=== PATIENT | male | born 1960 | race African-American/Black ===

== ENCOUNTER 2016-11-29 15:52 | Inpatient (IN) | payer MEDICARE, OTHER, MEDICAID ==
--- NOTE | 2016-11-29 16:27 | ED Physician Chart ---
Chief Complaint/HPI - Patient Information Date Seen:: 11/29/16 Time Seen:: 16:05 Chief Complaint:: chronic R ing. hernia now painful History of Present Illness:: Pt. has R ing. hernia for 12 years. Had pain today with defecation. No dysuria. No NV,D. Allergies:: Allergies Allergy/AdvReac Type Severity Reaction Status Date / Time No Known Allergies Allergy Verified 11/29/16 15:59 Vitals:: Vital Signs - 8 hr 11/29/16 15:52 Temp 98.0 F HR 73 RR 16 BP 116/75 O2 Sat % 98 Historian:: Patient Review of Systems - Review of Systems General/Constitutional: No fever, No chills Head: No headache Neck: No neck pain Cardio Vascular: Chest pain Pulmonary: No SOB GI: No nausea, No vomiting G/U: No dysuria Psychiatric: Prior psych history Allergic/Immuno: No urticaria Neurological: No syncope, No focal symptoms Past Medical History - Past Medical History Past Medical History: HTN, Other (hx leukocytosis (leukemia per Dr. Hutchison). CHF, cardiomyopathy.) Family History: None Social History: Non Smoker, No Alcohol Psychiatricy History: Schizophrenia Medication Reviewed:: risperdal and unknown antihypertensives Family Medical History - Family Member Father History Unknown: Yes Ethnicity: Non- Living Status: Unknown Hx Family Stroke: Yes Hx Family Tuberculosis: No Mother History Unknown: Yes Physical Exam - Physical Examination General/Constitutional: Awake, Well-developed, well-nourished, Alert, No distress, GCS 15, Non-toxic appearing Head: Atraumatic Eyes: Lids, conjuctiva normal, PERRL, EOMI Skin: Nl inspection ENMT: External ears, nose nl Neck: Nontender, Full ROM w/o pain Respiratory: Nl effort/Exclusion, Clear to Auscultation Cardio Vascular: RRR, No murmur, gallop, rubs GI: No tenderness/rebounding/guarding : No CVA tenderness Other comments:: Prob. bilat. hydrocoeles. R ing. hernia with minimal tenderness. Appears to be reducible. Extremities: No tenderness or effusion Neuro/Psych: Alert/oriented, No focal deficits Labs/Radiology/EKG Results - Lab Results Results: US shows nl. testes and bilat. hydrocoeles. CT abd. & pelvis, per rad.: "Large R ing. hernia containing bowel loops. Mild inflammatory changes in regional mesentery mesentery. No strangulation at this time but followup is needed. Large bilat hydrocoeles. Distended urinary bladder. Small broad based ventral hermia containing bowel loops. Milely prominent spleen." UA: unremarkable. November 03, 2016 WBC 37.7, H/H 13.1/40.5, BUN/creat = 18/1.1 These values being repeated. ED Septic Shock - . Is Septic Shock (SBP<90, OR Lactate>4 mmol\\L) present?: No - <6hrs of presentation: Vital Signs: Vital Signs - 8 hr 11/29/16 15:52 Temp 98.0 F HR 73 RR 16 BP 116/75 O2 Sat % 98 Reassessment (Disposition) - Diagnosis Diagnosis:: Dx: Large inguinal hernia with loops of bowel. Per rad. "follow up is needed". - Patient Disposition Discharge/Transfer:: Acute Care w/in this hosp Accepting Physician:: Dr. Hutchison Time Called:: 2024 Time Responded:: 20:25 Discussion with Medical Provider:: Discussed with Dr. Hutchison. He understands repeat CBC and CMP and CXR are pending, but he is aware of leukocytosis. He is giving admit orders. Condition at Disposition:: Stable
[2016-11-29 17:47] LABS: URINE BILIRUBIN NEGATIVE (NEGATIVE); URINE BLOOD NEGATIVE (NEGATIVE); URINE COLOR YELLOW; URINE GLUCOSE (UA) NEGATIVE (NEGATIVE); URINE KETONE NEGATIVE (NEGATIVE); URINE PROTEIN NEGATIVE (NEGATIVE); URINE UROBILINOGEN 0.2 E.U./dL (0.2 - 1.0)
[2016-11-29 17:48] LABS: URINE BACTERIA NONE SEEN /hpf (NONE SEEN); URINE EPITHELIAL CELLS NONE SEEN /lpf (FEW); URINE RBC NONE SEEN /hpf (0-5); URINE WBC NONE SEEN /hpf (0-5)
[2016-11-29] MEDS ORDERED: Maalox 30 mL Cup PO PRN (21:19)
[2016-11-29] MEDS ORDERED: Magnesium Hydroxide (MOM) 30 mL UDC PO PRN (21:19)
[2016-11-29] MEDS ORDERED: Albuterol Nebulizer 2.5mg/3mL IH PRN (21:21)
[2016-11-29] MEDS ORDERED: Ipratropium Neb 0.5 mg/2.5 mL UD IH PRN (21:21)
[2016-11-29] MEDS ORDERED: Hydrocodone/APAP 5mg/325mg Tab PO PRN (21:21)
[2016-11-29 21:22] LABS: MEAN PLATELET VOLUME 11.6 fl
[2016-11-29 21:32] LABS: HEMATOCRIT 39.9 % (39.0-49.0); MEAN CELL VOLUME 90.7 fl (80-99); MEAN CORPUSCULAR HEMOGLOBIN 29.6 pg (26.0-30.0); MEAN CORPUSCULAR HGB CONC 32.6 pg (28.0-36.0); RED CELL DISTRIBUTION WIDTH 13.4 % (11.5-20.0)
[2016-11-29 21:41] LABS: INR 1.1 (0.5-1.4); PROTHROMBIN TIME (TEST) 11.5 SECONDS (9.5-11.5)
[2016-11-29 21:42] LABS: PLATELET COUNT 109 Th/cmm (150-400)
[2016-11-29 21:46] LABS: ALB/GLOB RATIO 1.1 (1.0-1.8); ALKALINE PHOSPHATASE 29 U/L (34-104); AMYLASE SERUM 33 U/L (29-103); BILIRUBIN,TOTAL 0.3 mg/dL (0.3-1.0); BUN - UREA NITROGEN 18 mg/dL (7-25); CALCIUM SERUM 9.5 mg/dL (8.6-10.3); CHLORIDE 105 mEq/L (98-107); CREATININE - SERUM 1.2 mg/dL (0.7-1.3); GLUCOSE 83 mg/dL (70-105); LIPASE 27 U/L (11-82); POTASSIUM SERUM 3.9 mEq/L (3.5-5.1); SGOT 16 U/L (13-39); SGPT/ALT 8 U/L (7-52); SODIUM SERUM 136 mEq/L (136-145)
[2016-11-29 21:48] LABS: WHITE BLOOD COUNT 58.3 Th/cmm (4.8-10.8)
[2016-11-29 22:33] LABS: BAND NEUTROPHILE 0 % (0-10); BASOPHIL 0 % (0-3); EOSINOPHIL 0 % (0-5); NEUTROPHILS 6 % (40-80); TOTAL CELLS COUNTED 100
[2016-11-29 22:34] LABS: PLATELET ESTIMATE ADEQUATE (NORMAL); PLATELET MORPHOLOGY NORMAL (NORMAL)
[2016-11-29 22:59] LABS: ANION GAP 6.5 (7.0-16.0); CARBON DIOXIDE 28.4 mEq/L (21.0-31.0)
[2016-11-29] MEDS ORDERED: metroNIDAZOLE 500mg/NS 100mL 500 MG/100 ML BAG IV ONE (23:31)
[2016-11-29] MEDS: Levofloxacin 500mg/100mL 500 MG/100 ML BAG IV SCH (23:39)
[2016-11-30] MEDS ORDERED: Pneumococcal Vaccine 0.5 mL Vial IM ONE (00:54)
[2016-11-30 03:23] VITALS: BP 119/77
[2016-11-30] MEDS: metroNIDAZOLE 500mg/NS 100mL 500 MG/100 ML BAG IV SCH ×2 (04:56→21:55)
--- NOTE | 2016-11-30 07:57 | Admit Criteria Form ---
Admit Criteria Forms - Admit Criteria Diagnosis: UROLOGIC DISEASE [facility] Clinical Indications for Admission to Inpatient Care (Place ' X' for any and all applicable criteria): Hospital admission is needed for appropriate care of the patient because of 1 or more of the following: [ ]I. New-onset Reduced urine output, or hydronephrosis remaining after emergency or observation level care (as appropriate ) [ ]II. Renal disease needing inpatient care indicated by 1 or more of the following(2)(3)(4): [ ]a) Acute renal failure [ ]b) Significant uremic complications [ ]c) Acute kidney injury (that does not qualify as Acute renal failure ) requiring inpatient care indicated by ALL of the following(5)(6)(7)(8) (9): [ ]i) Worsening clinical status (eg, rising creatinine) despite outpatient and observation care treatment (eg, hydration) [ ]ii) Acute kidney injury indicated by 1 or more of the following: [ ]1) 2-fold or more rise in serum creatinine from baseline [ ]2) Reduction of more than 50% in estimated glomerular filtration rate from baseline [ ]3) Urine output less than 0.5 mL/kg/hr for 12 hours despite adequate volume status [ ]d) Systemic cause (eg, Goodpasture syndrome ) needing inpatient care [ ]e) Rapidly progressive renal disease needing inpatient care (eg, plasmapheresis, immunosuppression ) Anasarca needing inpatient care [ ]f) Hemoptysis [ ]g) Hemolysis, thrombosis, or infraction [ ]h) Anasarca needing inpatient care [ ]III. New-onset or uncontrolled nephrogenic diabetes insipidus [ ]IV. Urologic infection requiring inpatient care as indicated by 1 or more of the following(10)(11)(12): [ ]a) Hemodynamic instability [ ]b) Dehydration that is severe or persistent [ ]c) Failure of outpatient treatment [ ]d) Jumana's gangrene [ ]e) Urinary obstruction [ ]f) Immunocompromised state (eg, chronic steroid use ) [ ]g) Known renal or urologic abnormalities(eg, indwelling catheter, structural abnormalities ) [ ]h) Recent urologic manipulation or procedure Urinary obstruction [ ]i) Abscess requiring drainage Immunocompromised state [ ]V. Acute urinary retention requiring inpatient management as indicated by ANY ONE of the following(1)(13): [ ]a) Retention cannot be alleviated via emergency or observation level care (eg, urinary catheter placement) [ ]b) Hemodynamic instability [ ]c) Acute neurologic etiology (eg, cauda equina) [ ]d) Dehydration or other complications not manageable with emergency or observation level care [ ]e) Acute kidney injury (that does not qualify as Acute renal failure ) requiring inpatient care indicated by ALL of the following(5)(6)(7)(8) (9): [ ]i) Acute kidney injury indicated by ANY ONE of the following: [ ]1) 2-fold or more rise in serum creatinine from baseline [ ]2) Reduction of more than 50% in estimated glomerular filtration rate from baseline [ ]ii) Worsening clinical status (eg, rising creatinine) despite outpatient and observation care treatment (eg, hydration) [ ]. Gross hematuria requiring inpatient management as indicated by ANY ONE of the following(1)(2): [ ]a) Evidence of renal obstruction [ ]b) Reduced urine output [ ]c) Clot retention after urinary catheterization and irrigation [ ]d) Severe Anemia [ ]e) Systemic cause needing inpatient treatment (eg, Goodpasture syndrome) [ ]VII. Priapism not responsive to emergency or observation care treatment [ X]VII. Scrotal, testicular, or epididymal disorder requiring inpatient care indicated by 1 or more of the following(1)(14)(15)(16): [ ]a) Scrotal edema or infection not manageable with emergency or observation level care [ ]b) Orchitis not manageable with emergency or observation level care [ ]c) Epididymitis not manageable with emergency or observation level of care [ X]d) Other scrotal, testicular, or epididymal disorder (eg, infection, inflammation) not manageable with emergency or observation level care [ ]IX. Complications of transplanted kidney indicated by 1 or more of the following [ ]a) Acute graft rejection requiring inpatient management (eg, intravenous immunosuppression) [ ]b) Acute kidney injury indicated by ALL of the following i) Acute kidney injury indicated by 1 or more of the following 1) 2-fold or more rise in serum creatinine from baseline 2) Reduction of more than 50% in estimated glomerular filtration rate from baseline 3) Urine output less than 0.5 mL/kg/hr for 12 hours despite adequate volume status ii) Kidney injury too severe or not responsive to outpatient and observation care treatment (eg, hydration) [ ]c) Infection requiring inpatient management (eg, Hemodynamic instability, need for intravenous antimicrobial treatment) [ ]d) Other complication of transplanted kidney requiring patient management (eg, severe diarrhea leading to malabsorption) [ ]X. Trauma to renal, genital, or urologic system requiring inpatient medical care [ ]XI. Urologic Disease condition, symptom, or finding for which emergency and observation care have failed or are not considered appropriate. The original [facility] [employer] content created by [facility] [employer] has been revised. The portions of the content which have been revised are identified through the use of italic text or in bold, and [facility] has neither reviewed nor approved the modified material. All other unmodified content is copyright [facility] [employer]. Please see references footnoted in the original [facility] [employer] edition 2016 Admit Criteria Met?: Pending
--- NOTE | 2016-11-30 08:52 | General Progress Note ---
Subjective - Review of Systems Service Date: 11/30/16 Events since last encounter: CT scan and ultrasound shows large right inguinal hernas with bilateral hydrocoeles has ventral hernia with bowel has leukemia mental status? will verify if patient can sign his own consent Objective - Results Result Diagrams: 11/29/16 20:50 11/29/16 20:50 Recent Labs: Laboratory Last Values WBC 58.3 Th/cmm (4.8-10.8) H* D 11/29/16 20:50 RBC 4.40 Mil/cmm (4.30-5.70) 11/29/16 20:50 Hgb 13.0 gm/dL (13.2-17.3) L 11/29/16 20:50 Hct 39.9 % (39.0-49.0) 11/29/16 20:50 MCV 90.7 fl (80-99) 11/29/16 20:50 MCH 29.6 pg (26.0-30.0) 11/29/16 20:50 MCHC Differential 32.6 pg (28.0-36.0) 11/29/16 20:50 RDW 13.4 % (11.5-20.0) 11/29/16 20:50 Plt Count 109 Th/cmm (150-400) L D 11/29/16 20:50 MPV 11.6 fl 11/29/16 20:50 Band Neutrophils % 0 % (0-10) 11/29/16 20:50 Neutrophils (Manual) 6 % (40-80) L 11/29/16 20:50 Lymphocytes 88 % (20-50) H 11/29/16 20:50 Monocytes 6 % (2-10) 11/29/16 20:50 Eosinophils 0 % (0-5) 11/29/16 20:50 Basophils 0 % (0-3) 11/29/16 20:50 Platelet Estimate ADEQUATE (NORMAL) 11/29/16 20:50 Platelet Morphology NORMAL (NORMAL) 11/29/16 20:50 RBC Morph Micro Appear NORMAL (NORMAL) 11/29/16 20:50 PT 11.5 SECONDS (9.5-11.5) 11/29/16 20:50 INR 1.10 (0.5-1.4) 11/29/16 20:50 PTT (Actin FS) 25.9 SECONDS (26.0-38.0) L 11/29/16 20:50 Sodium 136 mEq/L (136-145) 11/29/16 20:50 Potassium 3.9 mEq/L (3.5-5.1) 11/29/16 20:50 Chloride 105 mEq/L (98-107) 11/29/16 20:50 Carbon Dioxide 28.4 mEq/L (21.0-31.0) 11/29/16 20:50 Anion Gap 6.5 (7.0-16.0) L 11/29/16 20:50 BUN 18 mg/dL (7-25) 11/29/16 20:50 Creatinine 1.2 mg/dL (0.7-1.3) 11/29/16 20:50 Est GFR ( Amer) > 60.0 ml/min (>90) 11/29/16 20:50 Est GFR (Non-Af Amer) > 60.0 ml/min 11/29/16 20:50 BUN/Creatinine Ratio 15.0 11/29/16 20:50 Glucose 83 mg/dL (70-105) 11/29/16 20:50 Calcium 9.5 mg/dL (8.6-10.3) 11/29/16 20:50 Total Bilirubin 0.3 mg/dL (0.3-1.0) 11/29/16 20:50 AST 16 U/L (13-39) 11/29/16 20:50 ALT 8 U/L (7-52) 11/29/16 20:50 Alkaline Phosphatase 29 U/L (34-104) L 11/29/16 20:50 B-Natriuretic Peptide 227.0 pg/mL (5.0-100.0) H 11/29/16 20:50 Total Protein 7.4 gm/dL (6.0-8.3) 11/29/16 20:50 Albumin 3.9 gm/dL (4.2-5.5) L 11/29/16 20:50 Globulin 3.5 gm/dL 11/29/16 20:50 Albumin/Globulin Ratio 1.1 (1.0-1.8) 11/29/16 20:50 Amylase 33 U/L (29-103) 11/29/16 20:50 Lipase 27 U/L (11-82) 11/29/16 20:50 Urine Source CLEAN C 11/29/16 16:05 Urine Color YELLOW 11/29/16 16:05 Urine Clarity CLEAR (CLEAR) 11/29/16 16:05 Urine pH 6.0 11/29/16 16:05 Ur Specific [place] 1.005 (1.005-1.030) 11/29/16 16:05 Urine Protein NEGATIVE mg/dL (NEGATIVE) 11/29/16 16:05 Urine Glucose (UA) NEGATIVE mg/dL (NEGATIVE) 11/29/16 16:05 Urine Ketones NEGATIVE mg/dL (NEGATIVE) 11/29/16 16:05 Urine Blood NEGATIVE (NEGATIVE) 11/29/16 16:05 Urine Nitrate NEGATIVE (NEGATIVE) 11/29/16 16:05 Urine Bilirubin NEGATIVE (NEGATIVE) 11/29/16 16:05 Urine Urobilinogen 0.2 E.U./dL (0.2 - 1.0) 11/29/16 16:05 Ur Leukocyte Esterase NEGATIVE (NEGATIVE) 11/29/16 16:05 Urine RBC NONE SEEN /hpf (0-5) 11/29/16 16:05 Urine WBC NONE SEEN /hpf (0-5) 11/29/16 16:05 Ur Epithelial Cells NONE SEEN /lpf (FEW) 11/29/16 16:05 Urine Bacteria NONE SEEN /hpf (NONE SEEN) 11/29/16 16:05 - Physical Exam Vitals and I&O: Vital Signs Temp 97.7 F 11/30/16 04:00 Pulse 68 11/30/16 04:00 Resp 20 11/30/16 04:00 BP 104/73 11/30/16 04:00 Pulse Ox 98 11/30/16 04:00 Active Medications: Current Medications Acetaminophen (Tylenol) 650 mg PO Q4HR PRN PRN Reason: Pain or Fever >101 Stop: 01/28/17 21:20 Acetaminophen/Hydrocodone Bitart ([place] 5mg/325mg) 1 tab PO Q4H PRN PRN Reason: Pain (Severe) Stop: 01/28/17 21:20 Al Hydrox/Mg Hydrox/Simethicone (Maalox) 30 ml PO Q4H PRN PRN Reason: GI DISTRESS Stop: 01/28/17 21:18 Albuterol Sulfate (Albuterol 2.5mg/3ml Neb Ud) 2.5 mg IH Q2HR PRN PRN Reason: Shortness of Breath or Wheeze Stop: 01/28/17 21:20 Artificial Tears (Artificial Tears Ophth Soln) 1 drop EACH EYE QID [facility] Stop: 01/29/17 08:59 Benztropine Mesylate (Cogentin) 1 mg PO BID [facility] Stop: 01/29/17 08:59 Carvedilol (Coreg) 3.125 mg PO BID [facility] Stop: 01/29/17 08:59 Clonidine HCl (Catapres) 0.1 mg PO Q8H PRN PRN Reason: SBP GREATER THAN 160 Stop: 01/28/17 21:18 Divalproex Sodium (Depakote Dr) 500 mg PO DAILY [facility] PRN Reason: Protocol Stop: 01/29/17 08:59 Fish Oil ([place] 3) 1,000 mg PO DAILY [facility] Stop: 01/29/17 08:59 Heparin Sodium (Porcine) (Heparin) 5,000 units SUBQ Q12HR [facility] Stop: 01/29/17 08:59 Levofloxacin (Levaquin Pb) 500 mg in 100 mls @ 100 mls/hr IV Q24HR [facility] Stop: 01/28/17 21:29 Last Admin: 11/29/16 23:39 Dose: 100 mls/hr Metronidazole (Flagyl) 500 mg in 100 mls @ 100 mls/hr IV Q8HR [facility] Stop: 01/29/17 04:59 Last Admin: 11/30/16 04:56 Dose: 100 mls/hr Ipratropium [place] (Atrovent Neb 0.5mg/2.5ml) 0.5 mg IH Q2HR PRN PRN Reason: Shortness of Breath or Wheeze Stop: 01/28/17 21:20 Magnesium Hydroxide (Milk Of Magnesia) 30 ml PO HS PRN PRN Reason: Constipation Stop: 01/28/17 21:18 Nitroglycerin (Nitrostat) 0.4 mg SL Q5MIN PRN PRN Reason: Chest Pain Stop: 01/28/17 21:18 Ondansetron HCl (Zofran) 4 mg IV Q8H PRN PRN Reason: Nausea / Vomiting Stop: 01/28/17 21:20 Risperidone (Risperdal) 2 mg PO Q12H ROBERTO PRN Reason: Protocol Stop: 01/28/17 21:29 Last Admin: 11/29/16 23:27 Dose: 2 mg Zolpidem Tartrate (Ambien) 10 mg PO HS PRN PRN Reason: Insomnia Stop: 01/28/17 21:20 - Procedures Procedures: Procedures Procedure Code Date OTHER GROUP THERAPY 94.44 12/22/14 Assessment/Plan - Problem List Patient Problems: All Active Problems Dyspnea (Active) R06.00 Acute on chronic systolic congestive heart failure (Acute) I50.23 Anemia (Acute) D64.9 CHF (congestive heart failure) (Acute) I50.9 Cardiomegaly (Acute) I51.7 Cardiomyopathy (Acute) 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
--- NOTE | 2016-11-30 09:23 | Diagnostic Imaging Report ---
Testicular/scrotal ultrasound HISTORY: Pain The right testis is somewhat small (2.8 x 3.6 x 2.9 cm. No focal parenchymal lesions. Slightly decreased vascular flow. The right epididymis appears normal. There is a relatively large hydrocele. The left testis measures 3.6 x 2.8 x 2.7 cm. No focal parenchymal lesions. Normal testicular vascular flow. A large hydrocele is seen on the left side. IMPRESSION: 1. Relatively large bilateral hydroceles 2. Slightly diminished size of the right testis with a mild decrease in overall vascular flow compared to the left side. No focal intratesticular parenchymal lesions.
[2016-11-30] MEDS: Polyvinyl Alcohol Ophth Soln 15 mL Bottle EACH EYE SCH ×3 (09:43→23:34)
[2016-11-30] MEDS: Fish Oil 1,000 MG SGL PO SCH (09:44)
[2016-11-30] MEDS: Benztropine 1 MG TAB PO SCH ×2 (09:45→17:11)
--- NOTE | 2016-11-30 09:46 | Diagnostic Imaging Report ---
CT scan abdomen and pelvis without intravenous contrast HISTORY: Pain, hernia Total DLP equals 823 CTDI equals 22.0 Axial sections were obtained from the xiphoid process down to the pubic symphysis. Limited sections of the lower chest demonstrate a small hiatal hernia. The liver exhibits a bulbous contour. The spleen appears enlarged. No focal abnormality seen in the region of the pancreas. No significant focal renal lesions. There is an approximate 2.1 cm defect noted within the anterior abdominal wall at the level the umbilicus associated with virtual hernia that contains nondilated bowel. The exam of the pelvis demonstrates a relatively large right inguinal hernia associated with nondilated bowel. Large bilateral hydroceles are seen. No other abnormal masses or fluid collections seen within the pelvis. IMPRESSION: 1. Large right inguinal hernia associated with nondilated bowel 2. Small umbilical hernia with nondilated bowel 3. Splenomegaly 4. Large bilateral hydroceles
--- NOTE | 2016-11-30 09:53 | Diagnostic Imaging Report ---
Portable chest x-ray HISTORY: Shortness of breath The heart is enlarged. No focal pulmonary processes. No hilar or mediastinal abnormalities. IMPRESSION: 1. No acute focal pulmonary processes 2. Cardiomegaly
[2016-11-30] MEDS ORDERED: Bupivacaine 0.5% W/Ep 10 mL Vial INJ ONE (13:00)
[2016-11-30] MEDS ORDERED: Midazolam 1mg/ml 2 ml vial IV ONE (13:06)
[2016-11-30] MEDS ORDERED: Meperidine 50 mg/mL 1mL Syr ONE ×2 (13:13→14:50)
[2016-11-30] MEDS ORDERED: Meperidine 25 mg/mL 1mL Syr IVP PRN (13:43)
[2016-11-30] MEDS ORDERED: Lactated Ringer 1,000 ML IV SCH (13:45)
[2016-11-30] MEDS ORDERED: Neostigmine 10mg/10mL Vial ONE (14:11)
--- NOTE | 2016-11-30 15:40 | History & Physical ---
CHIEF COMPLAINT: Pelvic pain. HISTORY OF PRESENT ILLNESS: This is a 55-year-old male with history of hypertension, schizoaffective disorder, chronic lower extremity edema, history of CHF, was admitted from nursing facility secondary to worsening pain in pelvic area. The patient with hydrocele as well as hernia, which is worsening. The patient was seen in the ER and admitted for further management. PAST MEDICAL HISTORY: As mentioned in history present illness. PAST SURGICAL HISTORY: Denies surgeries in the past. ALLERGIES: No known drug allergies. MEDICATIONS: Please see medication list. FAMILY HISTORY: Noncontributory. SOCIAL HISTORY: Previous smoker, nondrinker and no drugs, unemployed. The patient had been in a intermediate. REVIEW OF SYSTEMS: GENERAL: Complains of not feeling well. HEENT: No blurred vision. NECK: No neck pain. LUNGS: ____COPD or asthma. HEART: The patient with hypertension and CHF. ABDOMEN: No nausea, vomiting or pain, as mentioned above. NEUROLOGIC: No headaches, seizure. PSYCHIATRIC: As stated above. PHYSICAL EXAMINATION: VITAL SIGNS: Blood pressure 120/64, respirations 18, pulse 80, temperature 98.6. GENERAL: Middle aged male, appears chronically ill. NECK: Supple. No mass. LUNGS: Equal breath sounds, few rhonchi. HEART: Regular rate and rhythm without appreciable murmurs. ABDOMEN: Soft, nontender. Positive bowel sounds. EXTREMITIES: Positive excoriations. Positive trace edema. GENITOURINARY: Positive testicular swelling and inguinal hernia. ASSESSMENT AND PLAN: Pelvic pain secondary to worsening inguinal hernia, no incarceration per Radiology, hydrocele, hypertension, schizoaffective disorder, electrolyte abnormalities. We will continue the patient on IV hydration. The patient is n.p.o. Surgery to see the patient. We will also refer the patient to Psychiatry. Continue with current care. JOB# [id number]
--- NOTE | 2016-11-30 16:33 | Consultation ---
REFERRING PHYSICIAN: Dr. Hutchison. REASON FOR CONSULTATION: Abdominal pain. Thank you for referring this patient to me. HISTORY OF PRESENT ILLNESS: A 55-year-old male with known history of right inguinal hernia over the last 12 years. Today, following a bowel movement, he complained of severe pain in the right groin. PAST MEDICAL HISTORY: Totally is not clear, but he does have leukemia and probably some psych disorder. Dr. Levine has been seen the patient. He has a conservator out of state who is a sister. LABORATORY STUDIES: On this admission, the WBC was elevated at 58,300 consistent with history of leukemia. Chemistry was within normal limits. The patient underwent a CT scan of the abdomen and this showed large right inguinal hernia with small umbilical hernia with nondilated bowel, splenomegaly and question of hydrocele bilaterally. The ultrasound confirmed same findings. 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 PHYSICAL EXAMINATION: Does include a right inguinal hernia. The scrotum bilaterally appears to be slightly enlarged. There is a questionable hernia on the left side. There is an umbilical hernia, which is nontender. IMPRESSION: 1. Umbilical hernia with question of incarceration. 2. Right inguinal hernia with question of incarceration. 3. Question of left inguinal hernia. 4. Bilateral hydrocele (?). PLAN: Informed consent was discussed with the patient who agrees that the procedure and Dr. Levine on the consult and finally discuss with conservator from other state. Consent was given and repair of the various hernias will be done. JOB# [id number] [facility]
[2016-11-30] MEDS: Hydrocodone/APAP 10 mg/325 mg Tab PO PRN (17:13)
--- NOTE | 2016-11-30 18:29 | Operative Report ---
PREOPERATIVE DIAGNOSES: 1. Incarcerated umbilical hernia (?). 2. Right inguinal hernia. 3. Question of left inguinal hernia. 4. Bilateral hydrocele. 5. Leukemia. POSTOPERATIVE DIAGNOSES: 1. Incarcerated umbilical hernia (?). 2. Right inguinal hernia. 3. Question of left inguinal hernia. 4. Bilateral hydrocele. 5. Leukemia. OPERATION DONE: 1. Repair of umbilical hernia that is primary repair. 2. Repair of right inguinal hernia with placement of median sized PerFix plug. 3. Repair of left inguinal hernia. OPERATIVE FINDINGS: Umbilical hernia was moderate in size. There was some omentum present, but no bowel in the sac. Primary repair was done. The right inguinal hernia was a direct inguinal hernia and question was indirect inguinal hernia and repair was done with the use of PerFix plug. The hernia on the left side was of the indirect type and this was repaired separately. The hydrocele is likely not a hydrocele, but fluid emanating from the abdominal cavity to the hernias going into the sac. DESCRIPTION OF PROCEDURE: The patient was given general anesthesia. The abdomen and scrotal region was prepped with Betadine and draped in appropriate manner. A midline incision was made above and below the umbilicus. Bleeders were coagulated. The fascia was opened into the abdominal cavity. The sac was identified. No incarcerated structure was seen. The fascia was then identified on the left side of the umbilical hernia and repair of the fascia together utilizing interrupted [id number] sutures, #1 Nurolon was done. The subcutaneous tissues were closed with 4-0 Vicryl and the skin was closed with subcuticular suture of 4-0 Vicryl. Separate incision was made in the right groin and the sac was identified. This was indirect inguinal hernia. This was repaired with the use of PerFix plug, medium in size, anchoring the sutures to the ligaments in 4 quadrants. The left inguinal hernia was repaired in a different way as this was a direct type. Sutures were placed and the transversalis fascia and the Poupart's ligament with interrupted sutures of 2-0 Nurolon. The subcutaneous tissues were closed with 3-0 Vicryl and the skin was closed with subcuticular suture of 4-0 Vicryl. The patient tolerated the procedure well. JOB# [id number]
[2016-11-30 21:28] LABS: HEMATOCRIT 42.8 % (39.0-49.0); HEMOGLOBIN 14.3 gm/dL (13.2-17.3); MEAN CELL VOLUME 89.5 fl (80-99); MEAN CORPUSCULAR HEMOGLOBIN 29.8 pg (26.0-30.0); MEAN CORPUSCULAR HGB CONC 33.3 pg (28.0-36.0); MEAN PLATELET VOLUME 11.8 fl; PLATELET COUNT 105 Th/cmm (150-400); RED BLOOD COUNT 4.78 Mil/cmm (4.30-5.70); RED CELL DISTRIBUTION WIDTH 13.4 % (11.5-20.0)
[2016-11-30 21:37] LABS: WHITE BLOOD COUNT 34.9 Th/cmm (4.8-10.8)
[2016-11-30 21:41] LABS: ALKALINE PHOSPHATASE 31 U/L (34-104); ANION GAP 8.8 (7.0-16.0); BILIRUBIN,TOTAL 0.6 mg/dL (0.3-1.0); BUN - UREA NITROGEN 17 mg/dL (7-25); BUN/CREATININE RATIO 15.5; CALCIUM SERUM 9.3 mg/dL (8.6-10.3); CARBON DIOXIDE 24.1 mEq/L (21.0-31.0); CHLORIDE 106 mEq/L (98-107); CREATININE - SERUM 1.1 mg/dL (0.7-1.3); GLUCOSE 105 mg/dL (70-105); POTASSIUM SERUM 3.9 mEq/L (3.5-5.1); SGOT 16 U/L (13-39); SGPT/ALT 7 U/L (7-52); SODIUM SERUM 135 mEq/L (136-145)
[2016-11-30 22:09] LABS: BAND NEUTROPHILE 0 % (0-10); NEUTROPHILS 18 % (40-80); TOTAL CELLS COUNTED 100
[2016-11-30 22:10] LABS: BASOPHIL 0 % (0-3); EOSINOPHIL 0 % (0-5); PLATELET ESTIMATE ADEQUATE (NORMAL); PLATELET MORPHOLOGY NORMAL (NORMAL)
[2016-11-30] MEDS: HYDROmorphone 2 mg/mL 1mL Vial IVP PRN (22:10)
[2016-11-30] MEDS: Levofloxacin 500mg/100mL 500 MG/100 ML BAG IV SCH (22:58)
[2016-12-01] MEDS: HYDROmorphone 2 mg/mL 1mL Vial IVP PRN ×2 (03:58→12:53)
[2016-12-01] MEDS: metroNIDAZOLE 500mg/NS 100mL 500 MG/100 ML BAG IV SCH ×4 (04:05→20:15)
--- NOTE | 2016-12-01 04:21 | Consultation ---
The patient was seen, chart reviewed, discussed with staff. HISTORY OF PRESENT ILLNESS: The patient is a 55-year-old male with chronic history of mental illness, well known to myself from treatment at his facility and also at prior psychiatric hospitalization, currently on medical floor for surgery for hernia repair and the patient is in agreement. The patient said he might have the surgery and known that it will help him. The patient has been cooperative with staff, has not been agitated or depressed or anxious, he was actually pleasant. PAST PSYCHIATRIC HISTORY: Multiple hospitalizations, chronic history of mental illness. PAST MEDICAL HISTORY: As per Dr. Hutchison. PSYCHOSOCIAL HISTORY: The patient resides at [facility], requires complete care. Sister is conservator____, but she is out of state. MENTAL STATUS EXAMINATION: The patient is cooperative, superficial, pleasant, occasionally responding to internal stimuli. He is oriented to person, who was in the hospital, knew his name, his date of . No suicidal thoughts, no homicidal thoughts. ASSESSMENT: Schizophrenia versus schizoaffective disorder, chronic. PLAN: At this time, would continue current psychiatric medications. We will follow while in the hospital to provide supportive measures. The patient is accepting treatment. Thank you for the consultation. JOB# [id number]
[2016-12-01 07:27] LABS: HEMOGLOBIN 14.5 gm/dL (13.2-17.3); MEAN CELL VOLUME 90.4 fl (80-99); MEAN CORPUSCULAR HEMOGLOBIN 29.8 pg (26.0-30.0); PLATELET COUNT 113 Th/cmm (150-400); RED BLOOD COUNT 4.87 Mil/cmm (4.30-5.70); RED CELL DISTRIBUTION WIDTH 13.6 % (11.5-20.0)
[2016-12-01 07:53] LABS: INR 1.09 (0.5-1.4); PROTHROMBIN TIME (TEST) 11.4 SECONDS (9.5-11.5)
[2016-12-01 07:55] LABS: ALKALINE PHOSPHATASE 33 U/L (34-104); ANION GAP 6.8 (7.0-16.0); BILIRUBIN,TOTAL 0.8 mg/dL (0.3-1.0); BUN - UREA NITROGEN 16 mg/dL (7-25); BUN/CREATININE RATIO 13.3; CALCIUM SERUM 9.5 mg/dL (8.6-10.3); CARBON DIOXIDE 29.4 mEq/L (21.0-31.0); CHLORIDE 104 mEq/L (98-107); CREATININE - SERUM 1.2 mg/dL (0.7-1.3); GLUCOSE 93 mg/dL (70-105); POTASSIUM SERUM 4.2 mEq/L (3.5-5.1); SGOT 18 U/L (13-39); SGPT/ALT 6 U/L (7-52); SODIUM SERUM 136 mEq/L (136-145)
[2016-12-01 08:07] LABS: WHITE BLOOD COUNT 52.1 Th/cmm (4.8-10.8)
--- NOTE | 2016-12-01 08:42 | General Progress Note ---
Subjective - Review of Systems Service Date: 12/01/16 Events since last encounter: abdominal dressing changed incisions are clean diet as tolerated activity as tolerated, no lifting over 10 lbs for 6 weeks Objective - Results Result Diagrams: 12/01/16 07:20 12/01/16 07:20 Recent Labs: Laboratory Last Values WBC 52.1 Th/cmm (4.8-10.8) H* D 12/01/16 07:20 RBC 4.87 Mil/cmm (4.30-5.70) 12/01/16 07:20 Hgb 14.5 gm/dL (13.2-17.3) 12/01/16 07:20 Hct 44.0 % (39.0-49.0) 12/01/16 07:20 MCV 90.4 fl (80-99) 12/01/16 07:20 MCH 29.8 pg (26.0-30.0) 12/01/16 07:20 MCHC Differential 33.0 pg (28.0-36.0) 12/01/16 07:20 RDW 13.6 % (11.5-20.0) 12/01/16 07:20 Plt Count 113 Th/cmm (150-400) L 12/01/16 07:20 MPV 11.0 fl 12/01/16 07:20 Band Neutrophils % 0 % (0-10) 11/30/16 21:10 Neutrophils (Manual) 18 % (40-80) L 11/30/16 21:10 Lymphocytes 79 % (20-50) H 11/30/16 21:10 Monocytes 3 % (2-10) 11/30/16 21:10 Eosinophils 0 % (0-5) 11/30/16 21:10 Basophils 0 % (0-3) 11/30/16 21:10 Platelet Estimate ADEQUATE (NORMAL) 11/30/16 21:10 Platelet Morphology NORMAL (NORMAL) 11/30/16 21:10 RBC Morph Micro Appear NORMAL (NORMAL) 11/30/16 21:10 PT 11.4 SECONDS (9.5-11.5) 12/01/16 07:15 INR 1.09 (0.5-1.4) 12/01/16 07:15 PTT (Actin FS) 25.9 SECONDS (26.0-38.0) L 12/01/16 07:15 Sodium 136 mEq/L (136-145) 12/01/16 07:20 Potassium 4.2 mEq/L (3.5-5.1) 12/01/16 07:20 Chloride 104 mEq/L (98-107) 12/01/16 07:20 Carbon Dioxide 29.4 mEq/L (21.0-31.0) 12/01/16 07:20 Anion Gap 6.8 (7.0-16.0) L 12/01/16 07:20 BUN 16 mg/dL (7-25) 12/01/16 07:20 Creatinine 1.2 mg/dL (0.7-1.3) 12/01/16 07:20 Est GFR ( Amer) > 60.0 ml/min (>90) 12/01/16 07:20 Est GFR (Non-Af Amer) > 60.0 ml/min 12/01/16 07:20 BUN/Creatinine Ratio 13.3 12/01/16 07:20 Glucose 93 mg/dL (70-105) 12/01/16 07:20 Whole Bld Lactic Acid 1.83 mmol/L (0.60-1.99) 11/30/16 21:10 Calcium 9.5 mg/dL (8.6-10.3) 12/01/16 07:20 Total Bilirubin 0.8 mg/dL (0.3-1.0) 12/01/16 07:20 AST 18 U/L (13-39) 12/01/16 07:20 ALT 6 U/L (7-52) L 12/01/16 07:20 Alkaline Phosphatase 33 U/L (34-104) L 12/01/16 07:20 B-Natriuretic Peptide 227.0 pg/mL (5.0-100.0) H 11/29/16 20:50 Total Protein 7.9 gm/dL (6.0-8.3) 12/01/16 07:20 Albumin 4.0 gm/dL (4.2-5.5) L 12/01/16 07:20 Globulin 3.9 gm/dL 12/01/16 07:20 Albumin/Globulin Ratio 1.0 (1.0-1.8) 12/01/16 07:20 Amylase 33 U/L (29-103) 11/29/16 20:50 Lipase 27 U/L (11-82) 11/29/16 20:50 Urine Source CLEAN C 11/29/16 16:05 Urine Color YELLOW 11/29/16 16:05 Urine Clarity CLEAR (CLEAR) 11/29/16 16:05 Urine pH 6.0 11/29/16 16:05 Ur Specific [place] 1.005 (1.005-1.030) 11/29/16 16:05 Urine Protein NEGATIVE mg/dL (NEGATIVE) 11/29/16 16:05 Urine Glucose (UA) NEGATIVE mg/dL (NEGATIVE) 11/29/16 16:05 Urine Ketones NEGATIVE mg/dL (NEGATIVE) 11/29/16 16:05 Urine Blood NEGATIVE (NEGATIVE) 11/29/16 16:05 Urine Nitrate NEGATIVE (NEGATIVE) 11/29/16 16:05 Urine Bilirubin NEGATIVE (NEGATIVE) 11/29/16 16:05 Urine Urobilinogen 0.2 E.U./dL (0.2 - 1.0) 11/29/16 16:05 Ur Leukocyte Esterase NEGATIVE (NEGATIVE) 11/29/16 16:05 Urine RBC NONE SEEN /hpf (0-5) 11/29/16 16:05 Urine WBC NONE SEEN /hpf (0-5) 11/29/16 16:05 Ur Epithelial Cells NONE SEEN /lpf (FEW) 11/29/16 16:05 Urine Bacteria NONE SEEN /hpf (NONE SEEN) 11/29/16 16:05 - Physical Exam Vitals and I&O: Vital Signs Temp 98.2 F 12/01/16 04:00 Pulse 83 12/01/16 04:00 Resp 19 12/01/16 04:00 BP 132/85 12/01/16 04:00 Pulse Ox 96 12/01/16 04:00 Intake & Output 11/30/16 12/01/16 12/01/16 18:59 06:59 18:59 Intake Total 405.000 Balance 405.000 Intake: Intake, IV Amount 105.000 metroNIDAZOLE 500mg/NS 105.000 100mL 500 mg In 100 ml @ 100 mls/hr IV Q8HR [facility] Rx #:[id number] Oral 300 Other: # Voids 4 Stool Characteristics Soft Soft Active Medications: Current Medications Acetaminophen (Tylenol) 650 mg PO Q4HR PRN PRN Reason: Pain or Fever >101 Stop: 01/28/17 21:20 Acetaminophen/Hydrocodone Bitart ([place] 5mg/325mg) 1 tab PO Q4H PRN PRN Reason: Pain (Severe) Stop: 01/28/17 21:20 Acetaminophen/Hydrocodone Bitart ([place] 10 Mg/325 Mg) 1 tab PO Q4H PRN PRN Reason: Abdominal Pain Stop: 01/29/17 14:18 Last Admin: 11/30/16 17:13 Dose: 1 tab Al Hydrox/Mg Hydrox/Simethicone (Maalox) 30 ml PO Q4H PRN PRN Reason: GI DISTRESS Stop: 01/28/17 21:18 Albuterol Sulfate (Albuterol 2.5mg/3ml Neb Ud) 2.5 mg IH Q2HR PRN PRN Reason: Shortness of Breath or Wheeze Stop: 01/28/17 21:20 Artificial Tears (Artificial Tears Ophth Soln) 1 drop EACH EYE QID [facility] Stop: 01/29/17 08:59 Last Admin: 11/30/16 23:34 Dose: 1 drop Benztropine Mesylate (Cogentin) 1 mg PO BID [facility] Stop: 01/29/17 08:59 Last Admin: 11/30/16 17:11 Dose: 1 mg Carvedilol (Coreg) 3.125 mg PO BID [facility] Stop: 01/29/17 08:59 Last Admin: 11/30/16 17:12 Dose: 3.125 mg Clonidine HCl (Catapres) 0.1 mg PO Q8H PRN PRN Reason: SBP GREATER THAN 160 Stop: 01/28/17 21:18 Divalproex Sodium (Depakote Dr) 500 mg PO DAILY [facility] PRN Reason: Protocol Stop: 01/29/17 08:59 Last Admin: 11/30/16 09:44 Dose: 500 mg Fish Oil ([place] 3) 1,000 mg PO DAILY [facility] Stop: 01/29/17 08:59 Last Admin: 11/30/16 09:44 Dose: 1,000 mg Heparin Sodium (Porcine) (Heparin) 5,000 units SUBQ Q12HR [facility] Stop: 01/29/17 08:59 Last Admin: 11/30/16 23:03 Dose: 5,000 units Hydromorphone HCl (Dilaudid) 2 mg IVP Q4HR PRN PRN Reason: Abdominal Pain Stop: 01/29/17 14:18 Last Admin: 12/01/16 03:58 Dose: 2 mg Levofloxacin (Levaquin Pb) 500 mg in 100 mls @ 100 mls/hr IV Q24HR [facility] Stop: 01/28/17 21:29 Last Admin: 11/30/16 22:58 Dose: 100 mls/hr Metronidazole (Flagyl) 500 mg in 100 mls @ 100 mls/hr IV Q8HR [facility] Stop: 01/29/17 04:59 Last Admin: 12/01/16 04:08 Dose: 100 mls/hr Lactated Ringer's (Lactated Ringer) 1,000 mls @ 0 mls/hr IV .Q0M [facility] PRN Reason: TKO Stop: 12/01/16 13:44 Ipratropium [place] (Atrovent Neb 0.5mg/2.5ml) 0.5 mg IH Q2HR PRN PRN Reason: Shortness of Breath or Wheeze Stop: 01/28/17 21:20 Magnesium Hydroxide (Milk Of Magnesia) 30 ml PO HS PRN PRN Reason: Constipation Stop: 01/28/17 21:18 Meperidine HCl (Demerol) 12.5 mg IVP UD PRN PRN Reason: POST-OP PAIN Stop: 12/01/16 13:42 Nitroglycerin (Nitrostat) 0.4 mg SL Q5MIN PRN PRN Reason: Chest Pain Stop: 01/28/17 21:18 Ondansetron HCl (Zofran) 4 mg IV Q8H PRN PRN Reason: Nausea / Vomiting Stop: 01/28/17 21:20 Risperidone (Risperdal) 2 mg PO Q12H [facility] PRN Reason: Protocol Stop: 01/28/17 21:29 Last Admin: 11/30/16 23:03 Dose: 2 mg Zolpidem Tartrate (Ambien) 10 mg PO HS PRN PRN Reason: Insomnia Stop: 01/28/17 21:20 - Procedures Procedures: Procedures Procedure Code Date OTHER GROUP THERAPY 94.44 12/22/14 Assessment/Plan - Problem List Patient Problems: All Active Problems Dyspnea (Active) R06.00 Acute on chronic systolic congestive heart failure (Acute) I50.23 Anemia (Acute) D64.9 CHF (congestive heart failure) (Acute) I50.9 Cardiomegaly (Acute) I51.7 Cardiomyopathy (Acute) 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
[2016-12-01 09:22] LABS: NEUTROPHILS 18 % (40-80); TOTAL CELLS COUNTED 100
[2016-12-01 09:24] LABS: PLATELET ESTIMATE ADEQUATE (NORMAL); PLATELET MORPHOLOGY GIANT PLATELETS SEEN (NORMAL)
[2016-12-01] MEDS: Hydrocodone/APAP 10 mg/325 mg Tab PO PRN ×2 (10:18→17:56)
[2016-12-01] MEDS: Polyvinyl Alcohol Ophth Soln 15 mL Bottle EACH EYE SCH ×3 (10:18→20:16)
[2016-12-01] MEDS: Fish Oil 1,000 MG SGL PO SCH (10:19)
[2016-12-01] MEDS: Benztropine 1 MG TAB PO SCH ×2 (11:28→17:56)
--- NOTE | 2016-12-01 13:00 | Pathology Report ---
[id number] Collection date: 11/30/2016 Surgeon: Dr. Bartolo Hoang Specimen Description: Hernia sac. Gross Description: Received in formalin is a portion of logan fibromembranous connective tissue with a small amount of attached fatty tissue. Sectioning shows no focal lesions. [employer] sections are submitted in one cassette. Microscopic Description: The histologic sections show fibromembranous connective tissue showing fibrosis and mild chronic inflammation consisting of small collections of lymphocytes. Diagnosis: Fibromembranous connective tissue consistent with hernia sac. [facility]# [id number] [facility]
--- NOTE | 2016-12-01 13:19 | Internal Medicine Prog Note ---
Internal Medicine Subjective - Subjective Patient seen and examined:: with staff, chart reviewed Patient is:: awake, verbal, interactive Patient Complaints of:: congestion Per staff patient is:: no adverse event, poor appetite Internal Medicine Objective - Results Result Diagrams: 12/01/16 07:20 12/01/16 07:20 Recent Labs: Laboratory Last Values WBC 52.1 Th/cmm (4.8-10.8) H* D 12/01/16 07:20 RBC 4.87 Mil/cmm (4.30-5.70) 12/01/16 07:20 Hgb 14.5 gm/dL (13.2-17.3) 12/01/16 07:20 Hct 44.0 % (39.0-49.0) 12/01/16 07:20 MCV 90.4 fl (80-99) 12/01/16 07:20 MCH 29.8 pg (26.0-30.0) 12/01/16 07:20 MCHC Differential 33.0 pg (28.0-36.0) 12/01/16 07:20 RDW 13.6 % (11.5-20.0) 12/01/16 07:20 Plt Count 113 Th/cmm (150-400) L 12/01/16 07:20 MPV 11.0 fl 12/01/16 07:20 Band Neutrophils % 0 % (0-10) 11/30/16 21:10 Neutrophils (Manual) 18 % (40-80) L 12/01/16 07:20 Lymphocytes 74 % (20-50) H 12/01/16 07:20 Monocytes 2 % (2-10) 12/01/16 07:20 Eosinophils 0 % (0-5) 11/30/16 21:10 Basophils 0 % (0-3) 11/30/16 21:10 Atypical Lymphocytes 6 % 12/01/16 07:20 Platelet Estimate ADEQUATE (NORMAL) 12/01/16 07:20 Platelet Morphology GIANT PLATELETS SEEN (NORMAL) 12/01/16 07:20 RBC Morph Micro Appear NORMAL (NORMAL) 12/01/16 07:20 Smear Path Review 12/01/16 07:20 PT 11.4 SECONDS (9.5-11.5) 12/01/16 07:15 INR 1.09 (0.5-1.4) 12/01/16 07:15 PTT (Actin FS) 25.9 SECONDS (26.0-38.0) L 12/01/16 07:15 Sodium 136 mEq/L (136-145) 12/01/16 07:20 Potassium 4.2 mEq/L (3.5-5.1) 12/01/16 07:20 Chloride 104 mEq/L (98-107) 12/01/16 07:20 Carbon Dioxide 29.4 mEq/L (21.0-31.0) 12/01/16 07:20 Anion Gap 6.8 (7.0-16.0) L 12/01/16 07:20 BUN 16 mg/dL (7-25) 12/01/16 07:20 Creatinine 1.2 mg/dL (0.7-1.3) 12/01/16 07:20 Est GFR ( Amer) > 60.0 ml/min (>90) 12/01/16 07:20 Est GFR (Non-Af Amer) > 60.0 ml/min 12/01/16 07:20 BUN/Creatinine Ratio 13.3 12/01/16 07:20 Glucose 93 mg/dL (70-105) 12/01/16 07:20 Whole Bld Lactic Acid 1.83 mmol/L (0.60-1.99) 11/30/16 21:10 Calcium 9.5 mg/dL (8.6-10.3) 12/01/16 07:20 Total Bilirubin 0.8 mg/dL (0.3-1.0) 12/01/16 07:20 AST 18 U/L (13-39) 12/01/16 07:20 ALT 6 U/L (7-52) L 12/01/16 07:20 Alkaline Phosphatase 33 U/L (34-104) L 12/01/16 07:20 B-Natriuretic Peptide 227.0 pg/mL (5.0-100.0) H 11/29/16 20:50 Total Protein 7.9 gm/dL (6.0-8.3) 12/01/16 07:20 Albumin 4.0 gm/dL (4.2-5.5) L 12/01/16 07:20 Globulin 3.9 gm/dL 12/01/16 07:20 Albumin/Globulin Ratio 1.0 (1.0-1.8) 12/01/16 07:20 Amylase 33 U/L (29-103) 11/29/16 20:50 Lipase 27 U/L (11-82) 11/29/16 20:50 Urine Source CLEAN C 11/29/16 16:05 Urine Color YELLOW 11/29/16 16:05 Urine Clarity CLEAR (CLEAR) 11/29/16 16:05 Urine pH 6.0 11/29/16 16:05 Ur Specific [place] 1.005 (1.005-1.030) 11/29/16 16:05 Urine Protein NEGATIVE mg/dL (NEGATIVE) 11/29/16 16:05 Urine Glucose (UA) NEGATIVE mg/dL (NEGATIVE) 11/29/16 16:05 Urine Ketones NEGATIVE mg/dL (NEGATIVE) 11/29/16 16:05 Urine Blood NEGATIVE (NEGATIVE) 11/29/16 16:05 Urine Nitrate NEGATIVE (NEGATIVE) 11/29/16 16:05 Urine Bilirubin NEGATIVE (NEGATIVE) 11/29/16 16:05 Urine Urobilinogen 0.2 E.U./dL (0.2 - 1.0) 11/29/16 16:05 Ur Leukocyte Esterase NEGATIVE (NEGATIVE) 11/29/16 16:05 Urine RBC NONE SEEN /hpf (0-5) 11/29/16 16:05 Urine WBC NONE SEEN /hpf (0-5) 11/29/16 16:05 Ur Epithelial Cells NONE SEEN /lpf (FEW) 11/29/16 16:05 Urine Bacteria NONE SEEN /hpf (NONE SEEN) 11/29/16 16:05 - Physical Exam Vitals and I&O: Vital Signs Temp 98.2 F 12/01/16 04:00 Pulse 83 12/01/16 10:19 Resp 19 12/01/16 04:00 BP 123/69 12/01/16 10:19 Pulse Ox 96 12/01/16 04:00 Intake & Output 11/30/16 12/01/16 12/01/16 18:59 06:59 18:59 Intake Total 505.000 Balance 505.000 Intake: Intake, IV Amount 205.000 metroNIDAZOLE 500mg/NS 205.000 100mL 500 mg In 100 ml @ 100 mls/hr IV Q8HR [facility] Rx #:[id number] Oral 300 Other: # Voids 4 Stool Characteristics Soft Soft Active Medications: Current Medications Acetaminophen (Tylenol) 650 mg PO Q4HR PRN PRN Reason: Pain or Fever >101 Stop: 01/28/17 21:20 Acetaminophen/Hydrocodone Bitart ([place] 5mg/325mg) 1 tab PO Q4H PRN PRN Reason: Pain (Severe) Stop: 01/28/17 21:20 Acetaminophen/Hydrocodone Bitart ([place] 10 Mg/325 Mg) 1 tab PO Q4H PRN PRN Reason: Abdominal Pain Stop: 01/29/17 14:18 Last Admin: 12/01/16 10:18 Dose: 1 tab Al Hydrox/Mg Hydrox/Simethicone (Maalox) 30 ml PO Q4H PRN PRN Reason: GI DISTRESS Stop: 01/28/17 21:18 Albuterol Sulfate (Albuterol 2.5mg/3ml Neb Ud) 2.5 mg IH Q2HR PRN PRN Reason: Shortness of Breath or Wheeze Stop: 01/28/17 21:20 Artificial Tears (Artificial Tears Ophth Soln) 1 drop EACH EYE QID [facility] Stop: 01/29/17 08:59 Last Admin: 12/01/16 10:18 Dose: 1 drop Benztropine Mesylate (Cogentin) 1 mg PO BID [facility] Stop: 01/29/17 08:59 Last Admin: 12/01/16 11:28 Dose: 1 mg Carvedilol (Coreg) 3.125 mg PO BID [facility] Stop: 01/29/17 08:59 Last Admin: 12/01/16 10:19 Dose: 3.125 mg Clonidine HCl (Catapres) 0.1 mg PO Q8H PRN PRN Reason: SBP GREATER THAN 160 Stop: 01/28/17 21:18 Divalproex Sodium (Depakote Dr) 500 mg PO DAILY [facility] PRN Reason: Protocol Stop: 01/29/17 08:59 Last Admin: 12/01/16 10:21 Dose: 500 mg Fish Oil ([place] 3) 1,000 mg PO DAILY [facility] Stop: 01/29/17 08:59 Last Admin: 12/01/16 10:19 Dose: 1,000 mg Heparin Sodium (Porcine) (Heparin) 5,000 units SUBQ Q12HR [facility] Stop: 01/29/17 08:59 Last Admin: 12/01/16 10:21 Dose: 5,000 units Hydromorphone HCl (Dilaudid) 2 mg IVP Q4HR PRN PRN Reason: Abdominal Pain Stop: 01/29/17 14:18 Last Admin: 12/01/16 12:53 Dose: 2 mg Levofloxacin (Levaquin Pb) 500 mg in 100 mls @ 100 mls/hr IV Q24HR [facility] Stop: 01/28/17 21:29 Last Admin: 11/30/16 22:58 Dose: 100 mls/hr Metronidazole (Flagyl) 500 mg in 100 mls @ 100 mls/hr IV Q8HR [facility] Stop: 01/29/17 04:59 Last Admin: 12/01/16 12:43 Dose: 100 mls/hr Lactated Ringer's (Lactated Ringer) 1,000 mls @ 0 mls/hr IV .Q0M [facility] PRN Reason: TKO Stop: 12/01/16 13:44 Ipratropium [place] (Atrovent Neb 0.5mg/2.5ml) 0.5 mg IH Q2HR PRN PRN Reason: Shortness of Breath or Wheeze Stop: 01/28/17 21:20 Magnesium Hydroxide (Milk Of Magnesia) 30 ml PO HS PRN PRN Reason: Constipation Stop: 01/28/17 21:18 Meperidine HCl (Demerol) 12.5 mg IVP UD PRN PRN Reason: POST-OP PAIN Stop: 12/01/16 13:42 Nitroglycerin (Nitrostat) 0.4 mg SL Q5MIN PRN PRN Reason: Chest Pain Stop: 01/28/17 21:18 Ondansetron HCl (Zofran) 4 mg IV Q8H PRN PRN Reason: Nausea / Vomiting Stop: 01/28/17 21:20 Risperidone (Risperdal) 2 mg PO Q12H [facility] PRN Reason: Protocol Stop: 01/28/17 21:29 Last Admin: 12/01/16 10:19 Dose: 2 mg Zolpidem Tartrate (Ambien) 10 mg PO HS PRN PRN Reason: Insomnia Stop: 01/28/17 21:20 General: demented HEENT: NC/AT, PERRLA Neck: Supple, No JVD Lungs: congested Cardiovascular: RRR, Normal S1, Normal S2 Abdomen: soft non-tender, globular, positive bowel sound Extremities: excoriation Neurological: no change - Procedures Procedures: Procedures Procedure Code Date OTHER GROUP THERAPY 94.44 12/22/14 PRP I/FLOR INIT BLOCK >5 YR 19963 11/29/16 REPAIR ABDOMINAL WALL, PERCUTANEOUS ENDOSCOPIC APPROACH [id number] 11/29/16 RPR UMBIL FLOR BLOCK > 5 YR 49221 11/29/16 SUPPLEMENT R INGUINAL REGION WITH SYNTH SUB, OPEN APPROACH [id number] 11/29/16 Internal Medicine Assmt/Plan - Assessment Assessment: pelvic pain sp hernia repair sad cll noncompliance obesity - Plan Plan: cont on iv abx await heme consult ivf pain control seen by dr carrie leavitt rn
--- NOTE | 2016-12-01 17:38 | History & Physical ---
REFERRING PHYSICIAN: Ha Hutchison D.O. REASON FOR CONSULTATION: High white count. HISTORY OF PRESENT ILLNESS: The patient is a 55-year-old -[place] male who presented with abdominal pain, found to have umbilical and inguinal hernia. He was taken to surgery and had repair of the umbilical and inguinal hernias. He had a high white count on admission that persisted; therefore, I was asked to evaluate. PAST MEDICAL HISTORY: History of chronic lymphocytic leukemia, schizoaffective disorder and hypertension. MEDICATIONS: Reviewed. PHYSICAL EXAMINATION: GENERAL: The patient is awake, not in distress, sleepy. VITAL SIGNS: Stable. NECK: No peripheral lymphadenopathy. CHEST: Clear. ABDOMEN: Dressing in midline with minimal soaking and dressing in the groin area on the left side with minimal soaking. EXTREMITIES: No edema. NERVOUS SYSTEM: Moves 4 extremities. LABORATORY DATA: White count 52.1 with 74% lymphocytes and 18% neutrophils, platelets ____ and hemoglobin 14.5. Chemistry unremarkable. ASSESSMENT: 1. Chronic lymphocytic leukemia. 2. Chronic mild thrombocytopenia, unchanged for the past 5 years. 3. Status post hernia surgery. At this point, no intervention is required. Continue heparin. Discontinue ____ increased risk of bleeding and I will obtain leukemia lymphoma panel. Thank you, Dr. Hutchison for the opportunity to participate in the care of this interesting patient. JOB# [id number]
[2016-12-01] MEDS: Levofloxacin 500mg/100mL 500 MG/100 ML BAG IV SCH (21:35)
--- NOTE | 2016-12-01 22:32 | Progress Notes ---
The patient was seen, discussed with staff, chart is reviewed. Cooperative, passive, slightly sleepy, no agitation. I spoke with his sister yesterday prior to the operation and she consented. She is his conservator and actually she was very thankful for taking care of him. We will continue to monitor closely. Continue supportive measures. JOB# [id number]
[2016-12-02] MEDS: metroNIDAZOLE 500mg/NS 100mL 500 MG/100 ML BAG IV SCH ×2 (06:00→12:17)
[2016-12-02] MEDS: Benztropine 1 MG TAB PO SCH ×2 (08:29→16:04)
[2016-12-02] MEDS: Polyvinyl Alcohol Ophth Soln 15 mL Bottle EACH EYE SCH ×3 (08:29→20:59)
--- NOTE | 2016-12-02 09:28 | General Progress Note ---
Subjective - Review of Systems Service Date: 12/02/16 Events since last encounter: midline incision redressed. inguinal incisions clean wants a cane to ambulate Objective - Results Result Diagrams: 12/01/16 07:20 12/01/16 07:20 Recent Labs: Laboratory Last Values WBC 52.1 Th/cmm (4.8-10.8) H* D 12/01/16 07:20 RBC 4.87 Mil/cmm (4.30-5.70) 12/01/16 07:20 Hgb 14.5 gm/dL (13.2-17.3) 12/01/16 07:20 Hct 44.0 % (39.0-49.0) 12/01/16 07:20 MCV 90.4 fl (80-99) 12/01/16 07:20 MCH 29.8 pg (26.0-30.0) 12/01/16 07:20 MCHC Differential 33.0 pg (28.0-36.0) 12/01/16 07:20 RDW 13.6 % (11.5-20.0) 12/01/16 07:20 Plt Count 113 Th/cmm (150-400) L 12/01/16 07:20 MPV 11.0 fl 12/01/16 07:20 Band Neutrophils % 0 % (0-10) 11/30/16 21:10 Neutrophils (Manual) 18 % (40-80) L 12/01/16 07:20 Lymphocytes 74 % (20-50) H 12/01/16 07:20 Monocytes 2 % (2-10) 12/01/16 07:20 Eosinophils 0 % (0-5) 11/30/16 21:10 Basophils 0 % (0-3) 11/30/16 21:10 Atypical Lymphocytes 6 % 12/01/16 07:20 Platelet Estimate ADEQUATE (NORMAL) 12/01/16 07:20 Platelet Morphology GIANT PLATELETS SEEN (NORMAL) 12/01/16 07:20 RBC Morph Micro Appear NORMAL (NORMAL) 12/01/16 07:20 Smear Path Review 12/01/16 07:20 PT 11.4 SECONDS (9.5-11.5) 12/01/16 07:15 INR 1.09 (0.5-1.4) 12/01/16 07:15 PTT (Actin FS) 25.9 SECONDS (26.0-38.0) L 12/01/16 07:15 Sodium 136 mEq/L (136-145) 12/01/16 07:20 Potassium 4.2 mEq/L (3.5-5.1) 12/01/16 07:20 Chloride 104 mEq/L (98-107) 12/01/16 07:20 Carbon Dioxide 29.4 mEq/L (21.0-31.0) 12/01/16 07:20 Anion Gap 6.8 (7.0-16.0) L 12/01/16 07:20 BUN 16 mg/dL (7-25) 12/01/16 07:20 Creatinine 1.2 mg/dL (0.7-1.3) 12/01/16 07:20 Est GFR ( Amer) > 60.0 ml/min (>90) 12/01/16 07:20 Est GFR (Non-Af Amer) > 60.0 ml/min 12/01/16 07:20 BUN/Creatinine Ratio 13.3 12/01/16 07:20 Glucose 93 mg/dL (70-105) 12/01/16 07:20 Whole Bld Lactic Acid 1.83 mmol/L (0.60-1.99) 11/30/16 21:10 Calcium 9.5 mg/dL (8.6-10.3) 12/01/16 07:20 Total Bilirubin 0.8 mg/dL (0.3-1.0) 12/01/16 07:20 AST 18 U/L (13-39) 12/01/16 07:20 ALT 6 U/L (7-52) L 12/01/16 07:20 Alkaline Phosphatase 33 U/L (34-104) L 12/01/16 07:20 B-Natriuretic Peptide 227.0 pg/mL (5.0-100.0) H 11/29/16 20:50 Total Protein 7.9 gm/dL (6.0-8.3) 12/01/16 07:20 Albumin 4.0 gm/dL (4.2-5.5) L 12/01/16 07:20 Globulin 3.9 gm/dL 12/01/16 07:20 Albumin/Globulin Ratio 1.0 (1.0-1.8) 12/01/16 07:20 Amylase 33 U/L (29-103) 11/29/16 20:50 Lipase 27 U/L (11-82) 11/29/16 20:50 Urine Source CLEAN C 11/29/16 16:05 Urine Color YELLOW 11/29/16 16:05 Urine Clarity CLEAR (CLEAR) 11/29/16 16:05 Urine pH 6.0 11/29/16 16:05 Ur Specific [place] 1.005 (1.005-1.030) 11/29/16 16:05 Urine Protein NEGATIVE mg/dL (NEGATIVE) 11/29/16 16:05 Urine Glucose (UA) NEGATIVE mg/dL (NEGATIVE) 11/29/16 16:05 Urine Ketones NEGATIVE mg/dL (NEGATIVE) 11/29/16 16:05 Urine Blood NEGATIVE (NEGATIVE) 11/29/16 16:05 Urine Nitrate NEGATIVE (NEGATIVE) 11/29/16 16:05 Urine Bilirubin NEGATIVE (NEGATIVE) 11/29/16 16:05 Urine Urobilinogen 0.2 E.U./dL (0.2 - 1.0) 11/29/16 16:05 Ur Leukocyte Esterase NEGATIVE (NEGATIVE) 11/29/16 16:05 Urine RBC NONE SEEN /hpf (0-5) 11/29/16 16:05 Urine WBC NONE SEEN /hpf (0-5) 11/29/16 16:05 Ur Epithelial Cells NONE SEEN /lpf (FEW) 11/29/16 16:05 Urine Bacteria NONE SEEN /hpf (NONE SEEN) 11/29/16 16:05 - Physical Exam Vitals and I&O: Vital Signs Temp 99.2 F 12/02/16 04:00 Pulse 87 12/02/16 08:29 Resp 18 12/02/16 04:00 BP 101/71 12/02/16 08:29 Pulse Ox 97 12/02/16 04:00 Intake & Output 12/01/16 12/02/16 12/02/16 18:59 06:59 18:59 Intake Total 800 600 Output Total 300 400 Balance 500 200 Intake: Intake, IV Amount 100 100 metroNIDAZOLE 500mg/NS 100 100 100mL 500 mg In 100 ml @ 100 mls/hr IV Q8HR [facility] Rx #:[id number] Oral 700 500 Output: Urine 300 400 Other: Stool Characteristics Soft Active Medications: Current Medications Acetaminophen (Tylenol) 650 mg PO Q4HR PRN PRN Reason: Pain or Fever >101 Stop: 01/28/17 21:20 Acetaminophen/Hydrocodone Bitart ([place] 5mg/325mg) 1 tab PO Q4H PRN PRN Reason: Pain (Severe) Stop: 01/28/17 21:20 Acetaminophen/Hydrocodone Bitart ([place] 10 Mg/325 Mg) 1 tab PO Q4H PRN PRN Reason: Abdominal Pain Stop: 01/29/17 14:18 Last Admin: 12/01/16 17:56 Dose: 1 tab Al Hydrox/Mg Hydrox/Simethicone (Maalox) 30 ml PO Q4H PRN PRN Reason: GI DISTRESS Stop: 01/28/17 21:18 Albuterol Sulfate (Albuterol 2.5mg/3ml Neb Ud) 2.5 mg IH Q2HR PRN PRN Reason: Shortness of Breath or Wheeze Stop: 01/28/17 21:20 Artificial Tears (Artificial Tears Ophth Soln) 1 drop EACH EYE QID [facility] Stop: 01/29/17 08:59 Last Admin: 12/02/16 08:29 Dose: Not Given Benztropine Mesylate (Cogentin) 1 mg PO BID [facility] Stop: 01/29/17 08:59 Last Admin: 12/02/16 08:29 Dose: 1 mg Carvedilol (Coreg) 3.125 mg PO BID ROBERTO Stop: 01/29/17 08:59 Last Admin: 12/02/16 08:29 Dose: 3.125 mg Clonidine HCl (Catapres) 0.1 mg PO Q8H PRN PRN Reason: SBP GREATER THAN 160 Stop: 01/28/17 21:18 Divalproex Sodium (Depakote Dr) 500 mg PO DAILY ROBERTO PRN Reason: Protocol Stop: 01/29/17 08:59 Last Admin: 12/02/16 08:29 Dose: 500 mg Heparin Sodium (Porcine) (Heparin) 5,000 units SUBQ Q12HR [facility]ERTO Stop: 01/29/17 08:59 Last Admin: 12/02/16 08:29 Dose: 5,000 units Hydromorphone HCl (Dilaudid) 2 mg IVP Q4HR PRN PRN Reason: Abdominal Pain Stop: 01/29/17 14:18 Last Admin: 12/01/16 12:53 Dose: 2 mg Levofloxacin (Levaquin Pb) 500 mg in 100 mls @ 100 mls/hr IV Q24HR [facility] Stop: 01/28/17 21:29 Last Admin: 12/01/16 21:35 Dose: 100 mls/hr Metronidazole (Flagyl) 500 mg in 100 mls @ 100 mls/hr IV Q8HR [facility] Stop: 01/29/17 04:59 Last Admin: 12/02/16 06:00 Dose: 100 mls/hr Ipratropium [place] (Atrovent Neb 0.5mg/2.5ml) 0.5 mg IH Q2HR PRN PRN Reason: Shortness of Breath or Wheeze Stop: 01/28/17 21:20 Magnesium Hydroxide (Milk Of Magnesia) 30 ml PO HS PRN PRN Reason: Constipation Stop: 01/28/17 21:18 Nitroglycerin (Nitrostat) 0.4 mg SL Q5MIN PRN PRN Reason: Chest Pain Stop: 01/28/17 21:18 Ondansetron HCl (Zofran) 4 mg IV Q8H PRN PRN Reason: Nausea / Vomiting Stop: 01/28/17 21:20 Risperidone (Risperdal) 2 mg PO Q12H ROBERTO PRN Reason: Protocol Stop: 01/28/17 21:29 Last Admin: 12/01/16 20:50 Dose: 2 mg Zolpidem Tartrate (Ambien) 10 mg PO HS PRN PRN Reason: Insomnia Stop: 01/28/17 21:20 - Procedures Procedures: Procedures Procedure Code Date OTHER GROUP THERAPY 94.44 12/22/14 PRP I/FLOR INIT BLOCK >5 YR 07195 11/29/16 REPAIR ABDOMINAL WALL, PERCUTANEOUS ENDOSCOPIC APPROACH [id number] 11/29/16 RPR UMBIL FLOR BLOCK > 5 YR 45040 11/29/16 SUPPLEMENT R INGUINAL REGION WITH SYNTH SUB, OPEN APPROACH [id number] 11/29/16 Assessment/Plan - Problem List Patient Problems: All Active Problems Dyspnea (Active) R06.00 Acute on chronic systolic congestive heart failure (Acute) I50.23 Anemia (Acute) D64.9 CHF (congestive heart failure) (Acute) I50.9 Cardiomegaly (Acute) I51.7 Cardiomyopathy (Acute) 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
[2016-12-02] MEDS: Hydrocodone/APAP 10 mg/325 mg Tab PO PRN ×3 (10:36→21:22)
--- NOTE | 2016-12-02 13:41 | Internal Medicine Prog Note ---
Internal Medicine Subjective - Subjective Patient seen and examined:: with staff, chart reviewed Patient is:: asleep, interactive Patient Complaints of:: congestion Per staff patient is:: poor oral intake Internal Medicine Objective - Results Result Diagrams: 12/01/16 07:20 12/01/16 07:20 Recent Labs: Laboratory Last Values WBC 52.1 Th/cmm (4.8-10.8) H* D 12/01/16 07:20 RBC 4.87 Mil/cmm (4.30-5.70) 12/01/16 07:20 Hgb 14.5 gm/dL (13.2-17.3) 12/01/16 07:20 Hct 44.0 % (39.0-49.0) 12/01/16 07:20 MCV 90.4 fl (80-99) 12/01/16 07:20 MCH 29.8 pg (26.0-30.0) 12/01/16 07:20 MCHC Differential 33.0 pg (28.0-36.0) 12/01/16 07:20 RDW 13.6 % (11.5-20.0) 12/01/16 07:20 Plt Count 113 Th/cmm (150-400) L 12/01/16 07:20 MPV 11.0 fl 12/01/16 07:20 Band Neutrophils % 0 % (0-10) 11/30/16 21:10 Neutrophils (Manual) 18 % (40-80) L 12/01/16 07:20 Lymphocytes 74 % (20-50) H 12/01/16 07:20 Monocytes 2 % (2-10) 12/01/16 07:20 Eosinophils 0 % (0-5) 11/30/16 21:10 Basophils 0 % (0-3) 11/30/16 21:10 Atypical Lymphocytes 6 % 12/01/16 07:20 Platelet Estimate ADEQUATE (NORMAL) 12/01/16 07:20 Platelet Morphology GIANT PLATELETS SEEN (NORMAL) 12/01/16 07:20 RBC Morph Micro Appear NORMAL (NORMAL) 12/01/16 07:20 Smear Path Review 12/01/16 07:20 PT 11.4 SECONDS (9.5-11.5) 12/01/16 07:15 INR 1.09 (0.5-1.4) 12/01/16 07:15 PTT (Actin FS) 25.9 SECONDS (26.0-38.0) L 12/01/16 07:15 Sodium 136 mEq/L (136-145) 12/01/16 07:20 Potassium 4.2 mEq/L (3.5-5.1) 12/01/16 07:20 Chloride 104 mEq/L (98-107) 12/01/16 07:20 Carbon Dioxide 29.4 mEq/L (21.0-31.0) 12/01/16 07:20 Anion Gap 6.8 (7.0-16.0) L 12/01/16 07:20 BUN 16 mg/dL (7-25) 12/01/16 07:20 Creatinine 1.2 mg/dL (0.7-1.3) 12/01/16 07:20 Est GFR ( Amer) > 60.0 ml/min (>90) 12/01/16 07:20 Est GFR (Non-Af Amer) > 60.0 ml/min 12/01/16 07:20 BUN/Creatinine Ratio 13.3 12/01/16 07:20 Glucose 93 mg/dL (70-105) 12/01/16 07:20 Whole Bld Lactic Acid 1.83 mmol/L (0.60-1.99) 11/30/16 21:10 Calcium 9.5 mg/dL (8.6-10.3) 12/01/16 07:20 Total Bilirubin 0.8 mg/dL (0.3-1.0) 12/01/16 07:20 AST 18 U/L (13-39) 12/01/16 07:20 ALT 6 U/L (7-52) L 12/01/16 07:20 Alkaline Phosphatase 33 U/L (34-104) L 12/01/16 07:20 B-Natriuretic Peptide 227.0 pg/mL (5.0-100.0) H 11/29/16 20:50 Total Protein 7.9 gm/dL (6.0-8.3) 12/01/16 07:20 Albumin 4.0 gm/dL (4.2-5.5) L 12/01/16 07:20 Globulin 3.9 gm/dL 12/01/16 07:20 Albumin/Globulin Ratio 1.0 (1.0-1.8) 12/01/16 07:20 Amylase 33 U/L (29-103) 11/29/16 20:50 Lipase 27 U/L (11-82) 11/29/16 20:50 Urine Source CLEAN C 11/29/16 16:05 Urine Color YELLOW 11/29/16 16:05 Urine Clarity CLEAR (CLEAR) 11/29/16 16:05 Urine pH 6.0 11/29/16 16:05 Ur Specific [place] 1.005 (1.005-1.030) 11/29/16 16:05 Urine Protein NEGATIVE mg/dL (NEGATIVE) 11/29/16 16:05 Urine Glucose (UA) NEGATIVE mg/dL (NEGATIVE) 11/29/16 16:05 Urine Ketones NEGATIVE mg/dL (NEGATIVE) 11/29/16 16:05 Urine Blood NEGATIVE (NEGATIVE) 11/29/16 16:05 Urine Nitrate NEGATIVE (NEGATIVE) 11/29/16 16:05 Urine Bilirubin NEGATIVE (NEGATIVE) 11/29/16 16:05 Urine Urobilinogen 0.2 E.U./dL (0.2 - 1.0) 11/29/16 16:05 Ur Leukocyte Esterase NEGATIVE (NEGATIVE) 11/29/16 16:05 Urine RBC NONE SEEN /hpf (0-5) 11/29/16 16:05 Urine WBC NONE SEEN /hpf (0-5) 11/29/16 16:05 Ur Epithelial Cells NONE SEEN /lpf (FEW) 11/29/16 16:05 Urine Bacteria NONE SEEN /hpf (NONE SEEN) 11/29/16 16:05 - Physical Exam Vitals and I&O: Vital Signs Temp 100.6 F 12/02/16 12:00 Pulse 92 12/02/16 12:00 Resp 19 12/02/16 12:00 BP 103/60 12/02/16 12:00 Pulse Ox 97 12/02/16 12:00 Intake & Output 12/01/16 12/02/16 12/02/16 18:59 06:59 18:59 Intake Total 800 600 100 Output Total 300 400 Balance 500 200 100 Intake: Intake, IV Amount 100 100 100 metroNIDAZOLE 500mg/NS 100 100 100 100mL 500 mg In 100 ml @ 100 mls/hr IV Q8HR [facility] Rx #:[id number] Oral 700 500 Output: Urine 300 400 Other: Stool Characteristics Soft Active Medications: Current Medications Acetaminophen (Tylenol) 650 mg PO Q4HR PRN PRN Reason: Pain or Fever >101 Stop: 01/28/17 21:20 Last Admin: 12/02/16 12:13 Dose: 650 mg Acetaminophen/Hydrocodone Bitart ([place] 5mg/325mg) 1 tab PO Q4H PRN PRN Reason: Pain (Severe) Stop: 01/28/17 21:20 Acetaminophen/Hydrocodone Bitart ([place] 10 Mg/325 Mg) 1 tab PO Q4H PRN PRN Reason: Abdominal Pain Stop: 01/29/17 14:18 Last Admin: 12/02/16 10:36 Dose: 1 tab Al Hydrox/Mg Hydrox/Simethicone (Maalox) 30 ml PO Q4H PRN PRN Reason: GI DISTRESS Stop: 01/28/17 21:18 Albuterol Sulfate (Albuterol 2.5mg/3ml Neb Ud) 2.5 mg IH Q2HR PRN PRN Reason: Shortness of Breath or Wheeze Stop: 01/28/17 21:20 Artificial Tears (Artificial Tears Ophth Soln) 1 drop EACH EYE QID [facility] Stop: 01/29/17 08:59 Last Admin: 12/02/16 13:26 Dose: Not Given Benztropine Mesylate (Cogentin) 1 mg PO BID [facility] Stop: 01/29/17 08:59 Last Admin: 12/02/16 08:29 Dose: 1 mg Carvedilol (Coreg) 3.125 mg PO BID [facility] Stop: 01/29/17 08:59 Last Admin: 12/02/16 08:29 Dose: 3.125 mg Clonidine HCl (Catapres) 0.1 mg PO Q8H PRN PRN Reason: SBP GREATER THAN 160 Stop: 01/28/17 21:18 Divalproex Sodium (Depakote Dr) 500 mg PO DAILY ROBERTO PRN Reason: Protocol Stop: 01/29/17 08:59 Last Admin: 12/02/16 08:29 Dose: 500 mg Heparin Sodium (Porcine) (Heparin) 5,000 units SUBQ Q12HR [facility]ERTO Stop: 01/29/17 08:59 Last Admin: 12/02/16 08:29 Dose: 5,000 units Hydromorphone HCl (Dilaudid) 2 mg IVP Q4HR PRN PRN Reason: Abdominal Pain Stop: 01/29/17 14:18 Last Admin: 12/01/16 12:53 Dose: 2 mg Piperacillin Sod/Tazobactam (Sod 4.5 gm/ Sodium Chloride) 100 mls @ 100 mls/hr IV Q8HR [facility]ERTO Stop: 01/31/17 20:59 Ipratropium [place] (Atrovent Neb 0.5mg/2.5ml) 0.5 mg IH Q2HR PRN PRN Reason: Shortness of Breath or Wheeze Stop: 01/28/17 21:20 Magnesium Hydroxide (Milk Of Magnesia) 30 ml PO HS PRN PRN Reason: Constipation Stop: 01/28/17 21:18 Nitroglycerin (Nitrostat) 0.4 mg SL Q5MIN PRN PRN Reason: Chest Pain Stop: 01/28/17 21:18 Ondansetron HCl (Zofran) 4 mg IV Q8H PRN PRN Reason: Nausea / Vomiting Stop: 01/28/17 21:20 Risperidone (Risperdal) 2 mg PO Q12H ROBERTO PRN Reason: Protocol Stop: 01/28/17 21:29 Last Admin: 12/02/16 10:39 Dose: 2 mg Zolpidem Tartrate (Ambien) 10 mg PO HS PRN PRN Reason: Insomnia Stop: 01/28/17 21:20 General: lethargic HEENT: NC/AT, PERRLA Neck: Supple Lungs: congested, rales Cardiovascular: RRR, Normal S1, Normal S2 Abdomen: soft non-tender, globular, positive bowel sound Extremities: excoriation Neurological: no change - Procedures Procedures: Procedures Procedure Code Date OTHER GROUP THERAPY 94.44 12/22/14 PRP I/FLOR INIT BLOCK >5 YR 26840 11/29/16 REPAIR ABDOMINAL WALL, PERCUTANEOUS ENDOSCOPIC APPROACH [id number] 11/29/16 RPR UMBIL FLOR BLOCK > 5 YR 26856 11/29/16 SUPPLEMENT R INGUINAL REGION WITH SYNTH SUB, OPEN APPROACH [id number] 11/29/16 Internal Medicine Assmt/Plan - Assessment Assessment: pelvic pain sp hernia repair sad cll noncompliance obesity - Plan Plan: cont on iv abx await heme consult ivf pain control seen by dr carrie leavitt rn
[2016-12-03] MEDS: Hydrocodone/APAP 10 mg/325 mg Tab PO PRN ×3 (02:37→21:03)
[2016-12-03 08:08] LABS: ALKALINE PHOSPHATASE 26 U/L (34-104); ANION GAP 9.3 (7.0-16.0); BILIRUBIN,TOTAL 0.8 mg/dL (0.3-1.0); BUN - UREA NITROGEN 13 mg/dL (7-25); CALCIUM SERUM 8.6 mg/dL (8.6-10.3); CARBON DIOXIDE 28.6 mEq/L (21.0-31.0); CHLORIDE 104 mEq/L (98-107); CREATININE - SERUM 1.3 mg/dL (0.7-1.3); GLUCOSE 91 mg/dL (70-105); POTASSIUM SERUM 3.9 mEq/L (3.5-5.1); SGOT 16 U/L (13-39); SGPT/ALT 5 U/L (7-52); SODIUM SERUM 138 mEq/L (136-145)
[2016-12-03 08:14] LABS: MEAN CELL VOLUME 89.4 fl (80-99); MEAN CORPUSCULAR HEMOGLOBIN 30.5 pg (26.0-30.0); MEAN CORPUSCULAR HGB CONC 34.1 pg (28.0-36.0); MEAN PLATELET VOLUME 12.3 fl; RED BLOOD COUNT 3.87 Mil/cmm (4.30-5.70); RED CELL DISTRIBUTION WIDTH 13.7 % (11.5-20.0)
[2016-12-03 08:28] LABS: WHITE BLOOD COUNT 40.6 Th/cmm (4.8-10.8)
[2016-12-03 08:29] LABS: HEMATOCRIT 34.6 % (39.0-49.0); HEMOGLOBIN 11.8 gm/dL (13.2-17.3); PLATELET COUNT 82 Th/cmm (150-400)
[2016-12-03] MEDS: Polyvinyl Alcohol Ophth Soln 15 mL Bottle EACH EYE SCH ×3 (08:48→21:03)
[2016-12-03] MEDS: Benztropine 1 MG TAB PO SCH ×2 (08:49→17:45)
--- NOTE | 2016-12-03 08:58 | General Progress Note ---
Subjective - Review of Systems Service Date: 12/03/16 Events since last encounter: redressed, some sero-sanguinous drainage at midline incision groin incisions ok Objective - Results Result Diagrams: 12/03/16 06:15 12/03/16 06:15 Recent Labs: Laboratory Last Values WBC 40.6 Th/cmm (4.8-10.8) H* D 12/03/16 06:15 RBC 3.87 Mil/cmm (4.30-5.70) L 12/03/16 06:15 Hgb 11.8 gm/dL (13.2-17.3) L D 12/03/16 06:15 Hct 34.6 % (39.0-49.0) L D 12/03/16 06:15 MCV 89.4 fl (80-99) 12/03/16 06:15 MCH 30.5 pg (26.0-30.0) H 12/03/16 06:15 MCHC Differential 34.1 pg (28.0-36.0) 12/03/16 06:15 RDW 13.7 % (11.5-20.0) 12/03/16 06:15 Plt Count 82 Th/cmm (150-400) L D 12/03/16 06:15 MPV 12.3 fl 12/03/16 06:15 Band Neutrophils % 0 % (0-10) 11/30/16 21:10 Neutrophils (Manual) 18 % (40-80) L 12/01/16 07:20 Lymphocytes 74 % (20-50) H 12/01/16 07:20 Monocytes 2 % (2-10) 12/01/16 07:20 Eosinophils 0 % (0-5) 11/30/16 21:10 Basophils 0 % (0-3) 11/30/16 21:10 Atypical Lymphocytes 6 % 12/01/16 07:20 Platelet Estimate ADEQUATE (NORMAL) 12/01/16 07:20 Platelet Morphology GIANT PLATELETS SEEN (NORMAL) 12/01/16 07:20 RBC Morph Micro Appear NORMAL (NORMAL) 12/01/16 07:20 Smear Path Review 12/01/16 07:20 PT 11.4 SECONDS (9.5-11.5) 12/01/16 07:15 INR 1.09 (0.5-1.4) 12/01/16 07:15 PTT (Actin FS) 25.9 SECONDS (26.0-38.0) L 12/01/16 07:15 Sodium 138 mEq/L (136-145) 12/03/16 06:15 Potassium 3.9 mEq/L (3.5-5.1) 12/03/16 06:15 Chloride 104 mEq/L (98-107) 12/03/16 06:15 Carbon Dioxide 28.6 mEq/L (21.0-31.0) 12/03/16 06:15 Anion Gap 9.3 (7.0-16.0) 12/03/16 06:15 BUN 13 mg/dL (7-25) 12/03/16 06:15 Creatinine 1.3 mg/dL (0.7-1.3) 12/03/16 06:15 Est GFR ( Amer) > 60.0 ml/min (>90) 12/03/16 06:15 Est GFR (Non-Af Amer) > 60.0 ml/min 12/03/16 06:15 BUN/Creatinine Ratio 10.0 12/03/16 06:15 Glucose 91 mg/dL (70-105) 12/03/16 06:15 Whole Bld Lactic Acid 1.83 mmol/L (0.60-1.99) 11/30/16 21:10 Calcium 8.6 mg/dL (8.6-10.3) 12/03/16 06:15 Total Bilirubin 0.8 mg/dL (0.3-1.0) 12/03/16 06:15 AST 16 U/L (13-39) 12/03/16 06:15 ALT 5 U/L (7-52) L 12/03/16 06:15 Alkaline Phosphatase 26 U/L (34-104) L 12/03/16 06:15 B-Natriuretic Peptide 138.0 pg/mL (5.0-100.0) H 12/03/16 06:15 Total Protein 6.1 gm/dL (6.0-8.3) 12/03/16 06:15 Albumin 3.0 gm/dL (4.2-5.5) L 12/03/16 06:15 Globulin 3.1 gm/dL 12/03/16 06:15 Albumin/Globulin Ratio 1.0 (1.0-1.8) 12/03/16 06:15 Amylase 33 U/L (29-103) 11/29/16 20:50 Lipase 27 U/L (11-82) 11/29/16 20:50 Urine Source CLEAN C 11/29/16 16:05 Urine Color YELLOW 11/29/16 16:05 Urine Clarity CLEAR (CLEAR) 11/29/16 16:05 Urine pH 6.0 11/29/16 16:05 Ur Specific [place] 1.005 (1.005-1.030) 11/29/16 16:05 Urine Protein NEGATIVE mg/dL (NEGATIVE) 11/29/16 16:05 Urine Glucose (UA) NEGATIVE mg/dL (NEGATIVE) 11/29/16 16:05 Urine Ketones NEGATIVE mg/dL (NEGATIVE) 11/29/16 16:05 Urine Blood NEGATIVE (NEGATIVE) 11/29/16 16:05 Urine Nitrate NEGATIVE (NEGATIVE) 11/29/16 16:05 Urine Bilirubin NEGATIVE (NEGATIVE) 11/29/16 16:05 Urine Urobilinogen 0.2 E.U./dL (0.2 - 1.0) 11/29/16 16:05 Ur Leukocyte Esterase NEGATIVE (NEGATIVE) 11/29/16 16:05 Urine RBC NONE SEEN /hpf (0-5) 11/29/16 16:05 Urine WBC NONE SEEN /hpf (0-5) 11/29/16 16:05 Ur Epithelial Cells NONE SEEN /lpf (FEW) 11/29/16 16:05 Urine Bacteria NONE SEEN /hpf (NONE SEEN) 11/29/16 16:05 - Physical Exam Vitals and I&O: Vital Signs Temp 99.0 F 12/03/16 04:00 Pulse 82 12/03/16 07:51 Resp 20 12/03/16 07:51 BP 93/55 12/03/16 04:00 Pulse Ox 96 12/03/16 07:51 Intake & Output 12/02/16 12/03/16 12/03/16 18:59 06:59 18:59 Intake Total 550 520 Output Total 400 Balance 550 120 Intake: Intake, IV Amount 100 100 Piperacillin Sodium/ 100 Tazobact 4.5 gm In Sodium Chloride 0.9% 100 ml @ 100 mls/hr IV Q8HR [facility] Rx #:[id number] metroNIDAZOLE 500mg/NS 100 100mL 500 mg In 100 ml @ 100 mls/hr IV Q8HR [facility] Rx #:[id number] Oral 450 420 Output: Urine 400 Other: # Voids 3 # Bowel Movements 0 Active Medications: Current Medications Acetaminophen (Tylenol) 650 mg PO Q4HR PRN PRN Reason: Pain or Fever >101 Stop: 01/28/17 21:20 Last Admin: 12/02/16 17:17 Dose: 650 mg Acetaminophen/Hydrocodone Bitart ([place] 5mg/325mg) 1 tab PO Q4H PRN PRN Reason: Pain (Severe) Stop: 01/28/17 21:20 Acetaminophen/Hydrocodone Bitart ([place] 10 Mg/325 Mg) 1 tab PO Q4H PRN PRN Reason: Abdominal Pain Stop: 01/29/17 14:18 Last Admin: 12/03/16 02:37 Dose: 1 tab Al Hydrox/Mg Hydrox/Simethicone (Maalox) 30 ml PO Q4H PRN PRN Reason: GI DISTRESS Stop: 01/28/17 21:18 Albuterol Sulfate (Albuterol 2.5mg/3ml Neb Ud) 2.5 mg IH Q2HR PRN PRN Reason: Shortness of Breath or Wheeze Stop: 01/28/17 21:20 Artificial Tears (Artificial Tears Ophth Soln) 1 drop EACH EYE QID [facility] Stop: 01/29/17 08:59 Last Admin: 12/02/16 20:59 Dose: 1 drop Benztropine Mesylate (Cogentin) 1 mg PO BID [facility] Stop: 01/29/17 08:59 Last Admin: 12/02/16 16:04 Dose: 1 mg Carvedilol (Coreg) 3.125 mg PO BID [facility] Stop: 01/29/17 08:59 Last Admin: 12/02/16 16:04 Dose: 3.125 mg Clonidine HCl (Catapres) 0.1 mg PO Q8H PRN PRN Reason: SBP GREATER THAN 160 Stop: 01/28/17 21:18 Divalproex Sodium (Depakote Dr) 500 mg PO DAILY [facility] PRN Reason: Protocol Stop: 01/29/17 08:59 Last Admin: 12/02/16 08:29 Dose: 500 mg Heparin Sodium (Porcine) (Heparin) 5,000 units SUBQ Q12HR [facility] Stop: 01/29/17 08:59 Last Admin: 12/02/16 20:59 Dose: Not Given Hydromorphone HCl (Dilaudid) 2 mg IVP Q4HR PRN PRN Reason: Abdominal Pain Stop: 01/29/17 14:18 Last Admin: 12/01/16 12:53 Dose: 2 mg Piperacillin Sod/Tazobactam (Sod 4.5 gm/ Sodium Chloride) 100 mls @ 100 mls/hr IV Q8HR [facility] Stop: 01/31/17 20:59 Last Admin: 12/03/16 05:33 Dose: 100 mls/hr Ipratropium [place] (Atrovent Neb 0.5mg/2.5ml) 0.5 mg IH Q2HR PRN PRN Reason: Shortness of Breath or Wheeze Stop: 01/28/17 21:20 Magnesium Hydroxide (Milk Of Magnesia) 30 ml PO HS PRN PRN Reason: Constipation Stop: 01/28/17 21:18 Nitroglycerin (Nitrostat) 0.4 mg SL Q5MIN PRN PRN Reason: Chest Pain Stop: 01/28/17 21:18 Ondansetron HCl (Zofran) 4 mg IV Q8H PRN PRN Reason: Nausea / Vomiting Stop: 01/28/17 21:20 Risperidone (Risperdal) 2 mg PO Q12H ROBERTO PRN Reason: Protocol Stop: 01/28/17 21:29 Last Admin: 12/02/16 20:59 Dose: 2 mg Zolpidem Tartrate (Ambien) 10 mg PO HS PRN PRN Reason: Insomnia Stop: 01/28/17 21:20 - Procedures Procedures: Procedures Procedure Code Date OTHER GROUP THERAPY 94.44 12/22/14 PRP I/FLOR INIT BLOCK >5 YR 73511 11/29/16 REPAIR ABDOMINAL WALL, PERCUTANEOUS ENDOSCOPIC APPROACH [id number] 11/29/16 RPR UMBIL FLOR BLOCK > 5 YR 71729 11/29/16 SUPPLEMENT R INGUINAL REGION WITH SYNTH SUB, OPEN APPROACH [id number] 11/29/16 Assessment/Plan - Problem List Patient Problems: All Active Problems Dyspnea (Active) R06.00 Acute on chronic systolic congestive heart failure (Acute) I50.23 Anemia (Acute) D64.9 CHF (congestive heart failure) (Acute) I50.9 Cardiomegaly (Acute) I51.7 Cardiomyopathy (Acute) 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
[2016-12-03 08:59] LABS: NEUTROPHILS 17 % (40-80); TOTAL CELLS COUNTED 100
[2016-12-03 09:00] LABS: PLATELET ESTIMATE SLIGHT DECREASED (NORMAL)
[2016-12-03 10:22] LABS: HEMATOCRIT 34.9 % (39.0-49.0); RED CELL DISTRIBUTION WIDTH 13.4 % (11.5-20.0)
[2016-12-03 10:24] LABS: HEMOGLOBIN 11.8 gm/dL (13.2-17.3); MEAN CELL VOLUME 90.8 fl (80-99); MEAN CORPUSCULAR HEMOGLOBIN 30.7 pg (26.0-30.0); MEAN CORPUSCULAR HGB CONC 33.8 pg (28.0-36.0); MEAN PLATELET VOLUME 11.7 fl; PLATELET COUNT 90 Th/cmm (150-400); RED BLOOD COUNT 3.84 Mil/cmm (4.30-5.70)
[2016-12-03 10:30] LABS: WHITE BLOOD COUNT 37.1 Th/cmm (4.8-10.8)
[2016-12-03 10:49] LABS: NEUTROPHILS 17 % (40-80); TOTAL CELLS COUNTED 100
[2016-12-03 10:50] LABS: PLATELET ESTIMATE SLIGHT DECREASED (NORMAL)
--- NOTE | 2016-12-03 15:09 | Internal Medicine Prog Note ---
Internal Medicine Subjective - Subjective Patient seen and examined:: with staff, chart reviewed Patient is:: awake, verbal, interactive Patient Complaints of:: constipation Per staff patient is:: no adverse event, unstable gait Internal Medicine Objective - Results Result Diagrams: 12/03/16 10:13 12/03/16 06:15 Recent Labs: Laboratory Last Values WBC 37.1 Th/cmm (4.8-10.8) H* 12/03/16 10:13 RBC 3.84 Mil/cmm (4.30-5.70) L 12/03/16 10:13 Hgb 11.8 gm/dL (13.2-17.3) L 12/03/16 10:13 Hct 34.9 % (39.0-49.0) L 12/03/16 10:13 MCV 90.8 fl (80-99) 12/03/16 10:13 MCH 30.7 pg (26.0-30.0) H 12/03/16 10:13 MCHC Differential 33.8 pg (28.0-36.0) 12/03/16 10:13 RDW 13.4 % (11.5-20.0) 12/03/16 10:13 Plt Count 90 Th/cmm (150-400) L 12/03/16 10:13 MPV 11.7 fl 12/03/16 10:13 Band Neutrophils % 0 % (0-10) 11/30/16 21:10 Neutrophils (Manual) 17 % (40-80) L 12/03/16 10:13 Lymphocytes 81 % (20-50) H 12/03/16 10:13 Monocytes 2 % (2-10) 12/03/16 10:13 Eosinophils 0 % (0-5) 11/30/16 21:10 Basophils 0 % (0-3) 11/30/16 21:10 Atypical Lymphocytes 6 % 12/01/16 07:20 Platelet Estimate SLIGHT DECREASED (NORMAL) 12/03/16 10:13 Platelet Morphology GIANT PLATELETS SEEN (NORMAL) 12/01/16 07:20 RBC Morph Micro Appear NORMAL (NORMAL) 12/01/16 07:20 Smear Path Review 12/01/16 07:20 PT 11.4 SECONDS (9.5-11.5) 12/01/16 07:15 INR 1.09 (0.5-1.4) 12/01/16 07:15 PTT (Actin FS) 25.9 SECONDS (26.0-38.0) L 12/01/16 07:15 Sodium 138 mEq/L (136-145) 12/03/16 06:15 Potassium 3.9 mEq/L (3.5-5.1) 12/03/16 06:15 Chloride 104 mEq/L (98-107) 12/03/16 06:15 Carbon Dioxide 28.6 mEq/L (21.0-31.0) 12/03/16 06:15 Anion Gap 9.3 (7.0-16.0) 12/03/16 06:15 BUN 13 mg/dL (7-25) 12/03/16 06:15 Creatinine 1.3 mg/dL (0.7-1.3) 12/03/16 06:15 Est GFR ( Amer) > 60.0 ml/min (>90) 12/03/16 06:15 Est GFR (Non-Af Amer) > 60.0 ml/min 12/03/16 06:15 BUN/Creatinine Ratio 10.0 12/03/16 06:15 Glucose 91 mg/dL (70-105) 12/03/16 06:15 Whole Bld Lactic Acid 1.83 mmol/L (0.60-1.99) 11/30/16 21:10 Calcium 8.6 mg/dL (8.6-10.3) 12/03/16 06:15 Total Bilirubin 0.8 mg/dL (0.3-1.0) 12/03/16 06:15 AST 16 U/L (13-39) 12/03/16 06:15 ALT 5 U/L (7-52) L 12/03/16 06:15 Alkaline Phosphatase 26 U/L (34-104) L 12/03/16 06:15 B-Natriuretic Peptide 138.0 pg/mL (5.0-100.0) H 12/03/16 06:15 Total Protein 6.1 gm/dL (6.0-8.3) 12/03/16 06:15 Albumin 3.0 gm/dL (4.2-5.5) L 12/03/16 06:15 Globulin 3.1 gm/dL 12/03/16 06:15 Albumin/Globulin Ratio 1.0 (1.0-1.8) 12/03/16 06:15 Amylase 33 U/L (29-103) 11/29/16 20:50 Lipase 27 U/L (11-82) 11/29/16 20:50 Urine Source CLEAN C 11/29/16 16:05 Urine Color YELLOW 11/29/16 16:05 Urine Clarity CLEAR (CLEAR) 11/29/16 16:05 Urine pH 6.0 11/29/16 16:05 Ur Specific [place] 1.005 (1.005-1.030) 11/29/16 16:05 Urine Protein NEGATIVE mg/dL (NEGATIVE) 11/29/16 16:05 Urine Glucose (UA) NEGATIVE mg/dL (NEGATIVE) 11/29/16 16:05 Urine Ketones NEGATIVE mg/dL (NEGATIVE) 11/29/16 16:05 Urine Blood NEGATIVE (NEGATIVE) 11/29/16 16:05 Urine Nitrate NEGATIVE (NEGATIVE) 11/29/16 16:05 Urine Bilirubin NEGATIVE (NEGATIVE) 11/29/16 16:05 Urine Urobilinogen 0.2 E.U./dL (0.2 - 1.0) 11/29/16 16:05 Ur Leukocyte Esterase NEGATIVE (NEGATIVE) 11/29/16 16:05 Urine RBC NONE SEEN /hpf (0-5) 11/29/16 16:05 Urine WBC NONE SEEN /hpf (0-5) 11/29/16 16:05 Ur Epithelial Cells NONE SEEN /lpf (FEW) 11/29/16 16:05 Urine Bacteria NONE SEEN /hpf (NONE SEEN) 11/29/16 16:05 - Physical Exam Vitals and I&O: Vital Signs Temp 98.3 F 12/03/16 08:00 Pulse 80 12/03/16 08:49 Resp 19 12/03/16 08:00 BP 119/66 12/03/16 08:49 Pulse Ox 93 12/03/16 08:00 Intake & Output 12/02/16 12/03/16 12/03/16 18:59 06:59 18:59 Intake Total 550 620 Output Total 400 Balance 550 220 Intake: Intake, IV Amount 100 200 Piperacillin Sodium/ 200 Tazobact 4.5 gm In Sodium Chloride 0.9% 100 ml @ 100 mls/hr IV Q8HR [facility] Rx #:[id number] metroNIDAZOLE 500mg/NS 100 100mL 500 mg In 100 ml @ 100 mls/hr IV Q8HR [facility] Rx #:[id number] Oral 450 420 Output: Urine 400 Other: # Voids 3 # Bowel Movements 0 Stool Characteristics Soft Active Medications: Current Medications Acetaminophen (Tylenol) 650 mg PO Q4HR PRN PRN Reason: Pain or Fever >101 Stop: 01/28/17 21:20 Last Admin: 12/02/16 17:17 Dose: 650 mg Acetaminophen/Hydrocodone Bitart ([place] 5mg/325mg) 1 tab PO Q4H PRN PRN Reason: Pain (Severe) Stop: 01/28/17 21:20 Acetaminophen/Hydrocodone Bitart ([place] 10 Mg/325 Mg) 1 tab PO Q4H PRN PRN Reason: Abdominal Pain Stop: 01/29/17 14:18 Last Admin: 12/03/16 08:47 Dose: 1 tab Al Hydrox/Mg Hydrox/Simethicone (Maalox) 30 ml PO Q4H PRN PRN Reason: GI DISTRESS Stop: 01/28/17 21:18 Albuterol Sulfate (Albuterol 2.5mg/3ml Neb Ud) 2.5 mg IH Q2HR PRN PRN Reason: Shortness of Breath or Wheeze Stop: 01/28/17 21:20 Artificial Tears (Artificial Tears Ophth Soln) 1 drop EACH EYE QID [facility] Stop: 01/29/17 08:59 Last Admin: 12/03/16 12:24 Dose: Not Given Benztropine Mesylate (Cogentin) 1 mg PO BID [facility] Stop: 01/29/17 08:59 Last Admin: 12/03/16 08:49 Dose: 1 mg Bisacodyl (Dulcolax 10 Mg Supp) 10 mg RC DAILY PRN PRN Reason: Constipation Stop: 02/01/17 15:04 Carvedilol (Coreg) 3.125 mg PO BID [facility] Stop: 01/29/17 08:59 Last Admin: 12/03/16 08:49 Dose: 3.125 mg Clonidine HCl (Catapres) 0.1 mg PO Q8H PRN PRN Reason: SBP GREATER THAN 160 Stop: 01/28/17 21:18 Divalproex Sodium (Depakote Dr) 500 mg PO DAILY [facility] PRN Reason: Protocol Stop: 01/29/17 08:59 Last Admin: 12/03/16 08:48 Dose: 500 mg Docusate Sodium (Colace) 250 mg PO BID [facility] Stop: 02/01/17 16:59 Heparin Sodium (Porcine) (Heparin) 5,000 units SUBQ Q12HR [facility] Stop: 01/29/17 08:59 Last Admin: 12/03/16 08:50 Dose: 5,000 units Hydromorphone HCl (Dilaudid) 2 mg IVP Q4HR PRN PRN Reason: Abdominal Pain Stop: 01/29/17 14:18 Last Admin: 12/01/16 12:53 Dose: 2 mg Piperacillin Sod/Tazobactam (Sod 4.5 gm/ Sodium Chloride) 100 mls @ 100 mls/hr IV Q8HR [facility] Stop: 01/31/17 20:59 Last Admin: 12/03/16 12:29 Dose: 100 mls/hr Sodium Chloride (Nacl 0.45%) 1,000 mls @ 50 mls/hr IV .Q20H [facility] Stop: 02/01/17 15:14 Ipratropium [place] (Atrovent Neb 0.5mg/2.5ml) 0.5 mg IH Q2HR PRN PRN Reason: Shortness of Breath or Wheeze Stop: 01/28/17 21:20 Magnesium Hydroxide (Milk Of Magnesia) 30 ml PO HS PRN PRN Reason: Constipation Stop: 01/28/17 21:18 Nitroglycerin (Nitrostat) 0.4 mg SL Q5MIN PRN PRN Reason: Chest Pain Stop: 01/28/17 21:18 Ondansetron HCl (Zofran) 4 mg IV Q8H PRN PRN Reason: Nausea / Vomiting Stop: 01/28/17 21:20 Risperidone (Risperdal) 2 mg PO Q12H [facility] PRN Reason: Protocol Stop: 01/28/17 21:29 Last Admin: 12/02/16 20:59 Dose: 2 mg Zolpidem Tartrate (Ambien) 10 mg PO HS PRN PRN Reason: Insomnia Stop: 01/28/17 21:20 General: congested HEENT: NC/AT, PERRLA Neck: Supple, No JVD Lungs: CTAB Cardiovascular: RRR, Normal S1, Normal S2 Abdomen: soft non-tender, globular, distended Extremities: excoriation, other (3 incisions) Neurological: no change - Procedures Procedures: Procedures Procedure Code Date OTHER GROUP THERAPY 94.44 12/22/14 PRP I/FLOR INIT BLOCK >5 YR 65234 11/29/16 REPAIR ABDOMINAL WALL, PERCUTANEOUS ENDOSCOPIC APPROACH [id number] 11/29/16 RPR UMBIL FLOR BLOCK > 5 YR 14335 11/29/16 SUPPLEMENT R INGUINAL REGION WITH SYNTH SUB, OPEN APPROACH [id number] 11/29/16 Internal Medicine Assmt/Plan - Assessment Assessment: pelvic pain sp hernia repair x 3 sad cll noncompliance obesity - Plan Plan: cont on iv abx await heme consult ivf pain control seen by dr carrie leavitt rn
[2016-12-03] MEDS: Sodium Chloride 0.45% 1,000 ML IV SCH (21:09)
[2016-12-04] MEDS: Hydrocodone/APAP 10 mg/325 mg Tab PO PRN ×3 (05:51→21:01)
[2016-12-04 07:16] LABS: HEMATOCRIT 33.4 % (39.0-49.0); HEMOGLOBIN 11.4 gm/dL (13.2-17.3); MEAN CELL VOLUME 89.7 fl (80-99); MEAN CORPUSCULAR HEMOGLOBIN 30.6 pg (26.0-30.0); MEAN CORPUSCULAR HGB CONC 34.1 pg (28.0-36.0); MEAN PLATELET VOLUME 11.8 fl; RED BLOOD COUNT 3.72 Mil/cmm (4.30-5.70); RED CELL DISTRIBUTION WIDTH 13.5 % (11.5-20.0)
[2016-12-04 07:32] LABS: ALB/GLOB RATIO 0.9 (1.0-1.8); ALKALINE PHOSPHATASE 33 U/L (34-104); ANION GAP 9.9 (7.0-16.0); BILIRUBIN,TOTAL 0.7 mg/dL (0.3-1.0); BUN - UREA NITROGEN 12 mg/dL (7-25); CALCIUM SERUM 8.6 mg/dL (8.6-10.3); CARBON DIOXIDE 26.4 mEq/L (21.0-31.0); CHLORIDE 106 mEq/L (98-107); GLUCOSE 90 mg/dL (70-105); POTASSIUM SERUM 3.3 mEq/L (3.5-5.1); SGOT 14 U/L (13-39); SGPT/ALT 5 U/L (7-52); SODIUM SERUM 139 mEq/L (136-145)
[2016-12-04 08:04] LABS: WHITE BLOOD COUNT 37.1 Th/cmm (4.8-10.8)
[2016-12-04 08:18] LABS: TOTAL CELLS COUNTED 100
[2016-12-04 08:19] LABS: PLATELET ESTIMATE DECREASED PLATELETS (NORMAL)
[2016-12-04 08:21] LABS: NEUTROPHILS 14 % (40-80)
[2016-12-04] MEDS: Benztropine 1 MG TAB PO SCH ×2 (09:06→17:47)
[2016-12-04] MEDS: Polyvinyl Alcohol Ophth Soln 15 mL Bottle EACH EYE SCH ×4 (09:06→21:30)
[2016-12-04 14:01] LABS: PLATELET COUNT 75 Th/cmm (150-400)
[2016-12-04] MEDS ORDERED: Potassium Chloride 20 mEq ER Tab PO ONE (15:59)
--- NOTE | 2016-12-04 16:00 | Internal Medicine Prog Note ---
Internal Medicine Subjective - Subjective Patient seen and examined:: with staff, chart reviewed Patient is:: asleep, verbal, interactive Patient Complaints of:: sore throat Per staff patient is:: no adverse event, no episodes of fall Internal Medicine Objective - Results Result Diagrams: 12/04/16 06:30 12/04/16 06:30 Recent Labs: Laboratory Last Values WBC 37.1 Th/cmm (4.8-10.8) H* 12/04/16 06:30 RBC 3.72 Mil/cmm (4.30-5.70) L 12/04/16 06:30 Hgb 11.4 gm/dL (13.2-17.3) L 12/04/16 06:30 Hct 33.4 % (39.0-49.0) L 12/04/16 06:30 MCV 89.7 fl (80-99) 12/04/16 06:30 MCH 30.6 pg (26.0-30.0) H 12/04/16 06:30 MCHC Differential 34.1 pg (28.0-36.0) 12/04/16 06:30 RDW 13.5 % (11.5-20.0) 12/04/16 06:30 Plt Count 75 Th/cmm (150-400) L 12/04/16 06:30 MPV 11.8 fl 12/04/16 06:30 Band Neutrophils % 0 % (0-10) 11/30/16 21:10 Neutrophils (Manual) 14 % (40-80) L 12/04/16 06:30 Lymphocytes 70 % (20-50) H 12/04/16 06:30 Monocytes 3 % (2-10) 12/04/16 06:30 Eosinophils 0 % (0-5) 11/30/16 21:10 Basophils 0 % (0-3) 11/30/16 21:10 Atypical Lymphocytes 7 % 12/04/16 06:30 Other Cell Type 2.0 12/04/16 06:30 Platelet Estimate DECREASED PLATELETS (NORMAL) 12/04/16 06:30 Platelet Morphology GIANT PLATELETS SEEN (NORMAL) 12/01/16 07:20 RBC Morph Micro Appear NORMAL (NORMAL) 12/01/16 07:20 Smear Path Review 12/01/16 07:20 PT 11.4 SECONDS (9.5-11.5) 12/01/16 07:15 INR 1.09 (0.5-1.4) 12/01/16 07:15 PTT (Actin FS) 25.9 SECONDS (26.0-38.0) L 12/01/16 07:15 Sodium 139 mEq/L (136-145) 12/04/16 06:30 Potassium 3.3 mEq/L (3.5-5.1) L 12/04/16 06:30 Chloride 106 mEq/L (98-107) 12/04/16 06:30 Carbon Dioxide 26.4 mEq/L (21.0-31.0) 12/04/16 06:30 Anion Gap 9.9 (7.0-16.0) 12/04/16 06:30 BUN 12 mg/dL (7-25) 12/04/16 06:30 Creatinine 1.0 mg/dL (0.7-1.3) 12/04/16 06:30 Est GFR ( Amer) > 60.0 ml/min (>90) 12/04/16 06:30 Est GFR (Non-Af Amer) > 60.0 ml/min 12/04/16 06:30 BUN/Creatinine Ratio 12.0 12/04/16 06:30 Glucose 90 mg/dL (70-105) 12/04/16 06:30 Whole Bld Lactic Acid 1.83 mmol/L (0.60-1.99) 11/30/16 21:10 Calcium 8.6 mg/dL (8.6-10.3) 12/04/16 06:30 Total Bilirubin 0.7 mg/dL (0.3-1.0) 12/04/16 06:30 AST 14 U/L (13-39) 12/04/16 06:30 ALT 5 U/L (7-52) L 12/04/16 06:30 Alkaline Phosphatase 33 U/L (34-104) L 12/04/16 06:30 B-Natriuretic Peptide 138.0 pg/mL (5.0-100.0) H 12/03/16 06:15 Total Protein 6.3 gm/dL (6.0-8.3) 12/04/16 06:30 Albumin 3.0 gm/dL (4.2-5.5) L 12/04/16 06:30 Globulin 3.3 gm/dL 12/04/16 06:30 Albumin/Globulin Ratio 0.9 (1.0-1.8) L 12/04/16 06:30 Amylase 33 U/L (29-103) 11/29/16 20:50 Lipase 27 U/L (11-82) 11/29/16 20:50 Urine Source CLEAN C 11/29/16 16:05 Urine Color YELLOW 11/29/16 16:05 Urine Clarity CLEAR (CLEAR) 11/29/16 16:05 Urine pH 6.0 11/29/16 16:05 Ur Specific [place] 1.005 (1.005-1.030) 11/29/16 16:05 Urine Protein NEGATIVE mg/dL (NEGATIVE) 11/29/16 16:05 Urine Glucose (UA) NEGATIVE mg/dL (NEGATIVE) 11/29/16 16:05 Urine Ketones NEGATIVE mg/dL (NEGATIVE) 11/29/16 16:05 Urine Blood NEGATIVE (NEGATIVE) 11/29/16 16:05 Urine Nitrate NEGATIVE (NEGATIVE) 11/29/16 16:05 Urine Bilirubin NEGATIVE (NEGATIVE) 11/29/16 16:05 Urine Urobilinogen 0.2 E.U./dL (0.2 - 1.0) 11/29/16 16:05 Ur Leukocyte Esterase NEGATIVE (NEGATIVE) 11/29/16 16:05 Urine RBC NONE SEEN /hpf (0-5) 11/29/16 16:05 Urine WBC NONE SEEN /hpf (0-5) 11/29/16 16:05 Ur Epithelial Cells NONE SEEN /lpf (FEW) 11/29/16 16:05 Urine Bacteria NONE SEEN /hpf (NONE SEEN) 11/29/16 16:05 - Physical Exam Vitals and I&O: Vital Signs Temp 99.4 F 12/04/16 12:00 Pulse 77 12/04/16 12:00 Resp 20 12/04/16 12:00 BP 107/65 12/04/16 12:00 Pulse Ox 99 12/04/16 12:00 Intake & Output 12/03/16 12/04/16 12/04/16 18:59 06:59 18:59 Intake Total 700 200 Output Total 400 Balance 300 200 Intake: Intake, IV Amount 100 200 Piperacillin Sodium/ 100 200 Tazobact 4.5 gm In Sodium Chloride 0.9% 100 ml @ 100 mls/hr IV Q8HR [facility] Rx #:[id number] Oral 600 Output: Urine 400 Other: Stool Characteristics Soft Soft Active Medications: Current Medications Acetaminophen (Tylenol) 650 mg PO Q4HR PRN PRN Reason: Pain or Fever >101 Stop: 01/28/17 21:20 Last Admin: 12/02/16 17:17 Dose: 650 mg Acetaminophen/Hydrocodone Bitart ([place] 5mg/325mg) 1 tab PO Q4H PRN PRN Reason: Pain (Severe) Stop: 01/28/17 21:20 Acetaminophen/Hydrocodone Bitart ([place] 10 Mg/325 Mg) 1 tab PO Q4H PRN PRN Reason: Abdominal Pain Stop: 01/29/17 14:18 Last Admin: 12/04/16 13:46 Dose: 1 tab Al Hydrox/Mg Hydrox/Simethicone (Maalox) 30 ml PO Q4H PRN PRN Reason: GI DISTRESS Stop: 01/28/17 21:18 Albuterol Sulfate (Albuterol 2.5mg/3ml Neb Ud) 2.5 mg IH Q2HR PRN PRN Reason: Shortness of Breath or Wheeze Stop: 01/28/17 21:20 Artificial Tears (Artificial Tears Ophth Soln) [address] EYE [address] [facility] Stop: 01/29/17 08:59 Last Admin: 12/04/16 14:32 Dose: Not Given Benztropine Mesylate (Cogentin) [address] [facility] Stop: 01/29/17 08:59 Last Admin: 12/04/16 09:06 Dose: 1 mg Bisacodyl (Dulcolax 10 Mg Supp) 10 mg RC DAILY PRN PRN Reason: Constipation Stop: 02/01/17 15:04 Carvedilol (Coreg) 3.[address] [facility] Stop: 01/29/17 08:59 Last Admin: 12/04/16 08:37 Dose: Not Given Clonidine HCl (Catapres) 0.1 mg PO Q8H PRN PRN Reason: SBP GREATER THAN 160 Stop: 01/28/17 21:18 Divalproex Sodium (Depakote Dr) [address] [facility] PRN Reason: Protocol Stop: 01/29/17 08:59 Last Admin: 04/10/17 09:06 Dose: 500 mg Docusate Sodium (Colace) [address] [facility] Stop: 02/01/17 16:59 Last Admin: 12/04/16 09:06 Dose: 250 mg Heparin Sodium (Porcine) (Heparin) 5,[address] [facility] Stop: 01/29/17 08:59 Last Admin: 12/04/16 09:06 Dose: 5,000 units Hydromorphone HCl (Dilaudid) 2 mg IVP Q4HR PRN PRN Reason: Abdominal Pain Stop: 01/29/17 14:18 Last Admin: 12/01/16 12:53 Dose: 2 mg Piperacillin Sod/Tazobactam (Sod 4.5 gm/ Sodium Chloride) 100 mls @ 100 mls/hr IV Q8HR [facility] Stop: 01/31/17 20:59 Last Admin: 12/04/16 13:31 Dose: 100 mls/hr Sodium Chloride (Nacl 0.45%) 1,000 mls @ 50 mls/hr IV .Q20H [facility] Stop: 02/01/17 15:14 Last Admin: 12/03/16 21:09 Dose: 50 mls/hr Ipratropium [place] (Atrovent Neb 0.5mg/2.5ml) 0.5 mg IH Q2HR PRN PRN Reason: Shortness of Breath or Wheeze Stop: 01/28/17 21:20 Magnesium Hydroxide (Milk Of Magnesia) 30 ml PO HS PRN PRN Reason: Constipation Stop: 01/28/17 21:18 Nitroglycerin (Nitrostat) 0.4 mg SL Q5MIN PRN PRN Reason: Chest Pain Stop: 01/28/17 21:18 Ondansetron HCl (Zofran) 4 mg IV Q8H PRN PRN Reason: Nausea / Vomiting Stop: 01/28/17 21:20 Potassium Chloride (Klor-Con) 20 meq PO X1 ONE Stop: 12/04/16 16:00 Risperidone (Risperdal) 2 mg PO Q12H [facility] PRN Reason: Protocol Stop: 01/28/17 21:29 Last Admin: 12/04/16 09:06 Dose: 2 mg Zolpidem Tartrate (Ambien) 10 mg PO HS PRN PRN Reason: Insomnia Stop: 01/28/17 21:20 General: alert HEENT: NC/AT, PERRLA Neck: Supple, No JVD Lungs: congested Cardiovascular: RRR, Normal S1, Normal S2 Abdomen: globular, distended, positive bowel sound Extremities: excoriation Neurological: alert - Procedures Procedures: Procedures Procedure Code Date OTHER GROUP THERAPY 94.44 12/22/14 PRP I/FLOR INIT BLOCK >5 YR 00870 11/29/16 REPAIR ABDOMINAL WALL, PERCUTANEOUS ENDOSCOPIC APPROACH [id number] 11/29/16 RPR UMBIL FLOR BLOCK > 5 YR 32435 11/29/16 SUPPLEMENT R INGUINAL REGION WITH SYNTH SUB, OPEN APPROACH [id number] 11/29/16 Internal Medicine Assmt/Plan - Assessment Assessment: pelvic pain sp hernia repair x 3 sad cll noncompliance obesity - Plan Plan: cont on iv abx await heme consult ivf pain control seen by dr carrie leavitt rn Nutritional Asmnt/Malnutr-PDOC - Dietary Evaluation Malnutrition Findings (Please click <Entered> for more info): Nutritional Asmnt/Malnutrition Start: 12/04/16 14: 05 Text: Status: Complete Freq: Document 12/04/16 14:05 GSUN (Rec: 12/04/16 14:17 GSUN [email or web address]) Nutritional Asmnt/Malnutrition Patient General Information Nutritional Screening Moderate Risk Screening Diagnosis Pelvic pain secondary to worsening inguinal hernia Pertinent Medical Hx/Surgical Hx HTN, schizoaffective disorder, chronic lower extremity edema , hx CHF Subjective Information 55 year old male from SNF. 4/6 operative repair of umbilical and inguinal hernia. Pt was pleasant, confused, poor historian. Pt was sitting at edge of bed with 75% lunch finished, stated "that's all I can do." Other resposnes were questionable, limited interview. Pt appears nourisehd and approrpiate for age. Avg Po intake 75-100%, meeting nutritional needs. Current Diet Order/ Nutrition Support Low sodium, low cholesterol Pertinent Medications Maalox, Colace, MOM, Zofran Pertinent Labs Reviewed. Nutritional Hx/Data Height 1.8 m Height (Calculated Centimeters) 180.3 Current Weight (lbs) 102.965 kg Weight (Calculated Kilograms) 103.0 Weight (Calculated Grams) 522405.5 [place] Body Weight 172lb Weight Status Obese GI Symptoms Food Allergies No Skin Integrity/Comment: Nic 16. Skin intact. Current %PO Good (75-100%) Estimated Nutritional Goals BEE in Kcals: Adj wt of IBW Calories/Kcals/Kg AdjBW 185.8lb/84.4kg Kcals Calculated 2110-2532kcal (25-30kcal/kg) Protein: Adj wt of IBW Protein Calculated 84g (1g/kg) Fluid: ml 2110-2532ml (1ml/kcal) Nutritional Problem 1. Problem Problem No nutritional problem at this time. Intervention/Recommendation Comments 1. Continue with low sodium, low cholesterol diet. Expected Outcomes/Goals Expected Outcomes/Goals 1. PO intake continue to meet at least 75% of estimated nutritional needs.
--- NOTE | 2016-12-04 16:42 | General Progress Note ---
Subjective - Review of Systems Service Date: 12/04/16 Events since last encounter: dressings are clean, not changed minimal pain Objective - Results Result Diagrams: 12/04/16 06:30 12/04/16 06:30 Recent Labs: Laboratory Last Values WBC 37.1 Th/cmm (4.8-10.8) H* 12/04/16 06:30 RBC 3.72 Mil/cmm (4.30-5.70) L 12/04/16 06:30 Hgb 11.4 gm/dL (13.2-17.3) L 12/04/16 06:30 Hct 33.4 % (39.0-49.0) L 12/04/16 06:30 MCV 89.7 fl (80-99) 12/04/16 06:30 MCH 30.6 pg (26.0-30.0) H 12/04/16 06:30 MCHC Differential 34.1 pg (28.0-36.0) 12/04/16 06:30 RDW 13.5 % (11.5-20.0) 12/04/16 06:30 Plt Count 75 Th/cmm (150-400) L 12/04/16 06:30 MPV 11.8 fl 12/04/16 06:30 Band Neutrophils % 0 % (0-10) 11/30/16 21:10 Neutrophils (Manual) 14 % (40-80) L 12/04/16 06:30 Lymphocytes 70 % (20-50) H 12/04/16 06:30 Monocytes 3 % (2-10) 12/04/16 06:30 Eosinophils 0 % (0-5) 11/30/16 21:10 Basophils 0 % (0-3) 11/30/16 21:10 Atypical Lymphocytes 7 % 12/04/16 06:30 Other Cell Type 2.0 12/04/16 06:30 Platelet Estimate DECREASED PLATELETS (NORMAL) 12/04/16 06:30 Platelet Morphology GIANT PLATELETS SEEN (NORMAL) 12/01/16 07:20 RBC Morph Micro Appear NORMAL (NORMAL) 12/01/16 07:20 Smear Path Review 12/01/16 07:20 PT 11.4 SECONDS (9.5-11.5) 12/01/16 07:15 INR 1.09 (0.5-1.4) 12/01/16 07:15 PTT (Actin FS) 25.9 SECONDS (26.0-38.0) L 12/01/16 07:15 Sodium 139 mEq/L (136-145) 12/04/16 06:30 Potassium 3.3 mEq/L (3.5-5.1) L 12/04/16 06:30 Chloride 106 mEq/L (98-107) 12/04/16 06:30 Carbon Dioxide 26.4 mEq/L (21.0-31.0) 12/04/16 06:30 Anion Gap 9.9 (7.0-16.0) 12/04/16 06:30 BUN 12 mg/dL (7-25) 12/04/16 06:30 Creatinine 1.0 mg/dL (0.7-1.3) 12/04/16 06:30 Est GFR ( Amer) > 60.0 ml/min (>90) 12/04/16 06:30 Est GFR (Non-Af Amer) > 60.0 ml/min 12/04/16 06:30 BUN/Creatinine Ratio 12.0 12/04/16 06:30 Glucose 90 mg/dL (70-105) 12/04/16 06:30 Whole Bld Lactic Acid 1.83 mmol/L (0.60-1.99) 11/30/16 21:10 Calcium 8.6 mg/dL (8.6-10.3) 12/04/16 06:30 Total Bilirubin 0.7 mg/dL (0.3-1.0) 12/04/16 06:30 AST 14 U/L (13-39) 12/04/16 06:30 ALT 5 U/L (7-52) L 12/04/16 06:30 Alkaline Phosphatase 33 U/L (34-104) L 12/04/16 06:30 B-Natriuretic Peptide 138.0 pg/mL (5.0-100.0) H 12/03/16 06:15 Total Protein 6.3 gm/dL (6.0-8.3) 12/04/16 06:30 Albumin 3.0 gm/dL (4.2-5.5) L 12/04/16 06:30 Globulin 3.3 gm/dL 12/04/16 06:30 Albumin/Globulin Ratio 0.9 (1.0-1.8) L 12/04/16 06:30 Amylase 33 U/L (29-103) 11/29/16 20:50 Lipase 27 U/L (11-82) 11/29/16 20:50 Urine Source CLEAN C 11/29/16 16:05 Urine Color YELLOW 11/29/16 16:05 Urine Clarity CLEAR (CLEAR) 11/29/16 16:05 Urine pH 6.0 11/29/16 16:05 Ur Specific [place] 1.005 (1.005-1.030) 11/29/16 16:05 Urine Protein NEGATIVE mg/dL (NEGATIVE) 11/29/16 16:05 Urine Glucose (UA) NEGATIVE mg/dL (NEGATIVE) 11/29/16 16:05 Urine Ketones NEGATIVE mg/dL (NEGATIVE) 11/29/16 16:05 Urine Blood NEGATIVE (NEGATIVE) 11/29/16 16:05 Urine Nitrate NEGATIVE (NEGATIVE) 11/29/16 16:05 Urine Bilirubin NEGATIVE (NEGATIVE) 11/29/16 16:05 Urine Urobilinogen 0.2 E.U./dL (0.2 - 1.0) 11/29/16 16:05 Ur Leukocyte Esterase NEGATIVE (NEGATIVE) 11/29/16 16:05 Urine RBC NONE SEEN /hpf (0-5) 11/29/16 16:05 Urine WBC NONE SEEN /hpf (0-5) 11/29/16 16:05 Ur Epithelial Cells NONE SEEN /lpf (FEW) 11/29/16 16:05 Urine Bacteria NONE SEEN /hpf (NONE SEEN) 11/29/16 16:05 - Physical Exam Vitals and I&O: Vital Signs Temp 100.4 F 12/04/16 16:00 Pulse 78 12/04/16 16:00 Resp 20 12/04/16 16:00 BP 102/60 12/04/16 16:00 Pulse Ox 100 12/04/16 16:00 Intake & Output 12/03/16 12/04/16 12/04/16 18:59 06:59 18:59 Intake Total 700 200 Output Total 400 Balance 300 200 Intake: Intake, IV Amount 100 200 Piperacillin Sodium/ 100 200 Tazobact 4.5 gm In Sodium Chloride 0.9% 100 ml @ 100 mls/hr IV Q8HR [facility] Rx #:[id number] Oral 600 Output: Urine 400 Other: Stool Characteristics Soft Soft Active Medications: Current Medications Acetaminophen (Tylenol) 650 mg PO Q4HR PRN PRN Reason: Pain or Fever >101 Stop: 01/28/17 21:20 Last Admin: 12/02/16 17:17 Dose: 650 mg Acetaminophen/Hydrocodone Bitart ([place] 5mg/325mg) 1 tab PO Q4H PRN PRN Reason: Pain (Severe) Stop: 01/28/17 21:20 Acetaminophen/Hydrocodone Bitart ([place] 10 Mg/325 Mg) 1 tab PO Q4H PRN PRN Reason: Abdominal Pain Stop: 01/29/17 14:18 Last Admin: 12/04/16 13:46 Dose: 1 tab Al Hydrox/Mg Hydrox/Simethicone (Maalox) 30 ml PO Q4H PRN PRN Reason: GI DISTRESS Stop: 01/28/17 21:18 Albuterol Sulfate (Albuterol 2.5mg/3ml Neb Ud) 2.5 mg IH Q2HR PRN PRN Reason: Shortness of Breath or Wheeze Stop: 01/28/17 21:20 Artificial Tears (Artificial Tears Ophth Soln) 1 drop EACH EYE QID [facility] Stop: 01/29/17 08:59 Last Admin: 12/04/16 14:32 Dose: Not Given Benztropine Mesylate (Cogentin) 1 mg PO BID [facility] Stop: 01/29/17 08:59 Last Admin: 12/04/16 09:06 Dose: 1 mg Bisacodyl (Dulcolax 10 Mg Supp) 10 mg RC DAILY PRN PRN Reason: Constipation Stop: 02/01/17 15:04 Carvedilol (Coreg) 3.125 mg PO BID [facility] Stop: 01/29/17 08:59 Last Admin: 12/04/16 08:37 Dose: Not Given Clonidine HCl (Catapres) 0.1 mg PO Q8H PRN PRN Reason: SBP GREATER THAN 160 Stop: 01/28/17 21:18 Divalproex Sodium (Depakote Dr) 500 mg PO DAILY [facility] PRN Reason: Protocol Stop: 01/29/17 08:59 Last Admin: 12/04/16 09:06 Dose: 500 mg Docusate Sodium (Colace) 250 mg PO BID [facility] Stop: 02/01/17 16:59 Last Admin: 12/04/16 09:06 Dose: 250 mg Heparin Sodium (Porcine) (Heparin) 5,000 units SUBQ Q12HR [facility] Stop: 01/29/17 08:59 Last Admin: 12/04/16 09:06 Dose: 5,000 units Hydromorphone HCl (Dilaudid) 2 mg IVP Q4HR PRN PRN Reason: Abdominal Pain Stop: 01/29/17 14:18 Last Admin: 12/01/16 12:53 Dose: 2 mg Piperacillin Sod/Tazobactam (Sod 4.5 gm/ Sodium Chloride) 100 mls @ 100 mls/hr IV Q8HR [facility] Stop: 01/31/17 20:59 Last Admin: 12/04/16 13:31 Dose: 100 mls/hr Sodium Chloride (Nacl 0.45%) 1,000 mls @ 50 mls/hr IV .Q20H [facility] Stop: 02/01/17 15:14 Last Admin: 12/03/16 21:09 Dose: 50 mls/hr Ipratropium [place] (Atrovent Neb 0.5mg/2.5ml) 0.5 mg IH Q2HR PRN PRN Reason: Shortness of Breath or Wheeze Stop: 01/28/17 21:20 Magnesium Hydroxide (Milk Of Magnesia) 30 ml PO HS PRN PRN Reason: Constipation Stop: 01/28/17 21:18 Nitroglycerin (Nitrostat) 0.4 mg SL Q5MIN PRN PRN Reason: Chest Pain Stop: 01/28/17 21:18 Ondansetron HCl (Zofran) 4 mg IV Q8H PRN PRN Reason: Nausea / Vomiting Stop: 01/28/17 21:20 Risperidone (Risperdal) 2 mg PO Q12H [facility] PRN Reason: Protocol Stop: 01/28/17 21:29 Last Admin: 12/04/16 09:06 Dose: 2 mg Zolpidem Tartrate (Ambien) 10 mg PO HS PRN PRN Reason: Insomnia Stop: 01/28/17 21:20 - Procedures Procedures: Procedures Procedure Code Date OTHER GROUP THERAPY 94.44 12/22/14 PRP I/FLOR INIT BLOCK >5 YR 31153 11/29/16 REPAIR ABDOMINAL WALL, PERCUTANEOUS ENDOSCOPIC APPROACH [id number] 11/29/16 RPR UMBIL FLOR BLOCK > 5 YR 81622 11/29/16 SUPPLEMENT R INGUINAL REGION WITH SYNTH SUB, OPEN APPROACH [id number] 11/29/16 Assessment/Plan - Problem List Patient Problems: All Active Problems Dyspnea (Active) R06.00 Acute on chronic systolic congestive heart failure (Acute) I50.23 Anemia (Acute) D64.9 CHF (congestive heart failure) (Acute) I50.9 Cardiomegaly (Acute) I51.7 Cardiomyopathy (Acute) 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 Nutritional Asmnt/Malnutr-PDOC - Dietary Evaluation Malnutrition Findings (Please click <Entered> for more info): Nutritional Asmnt/Malnutrition Start: 12/04/16 14: 05 Text: Status: Complete Freq: Document 12/04/16 14:05 JENNIFER (Rec: 12/04/16 14:17 JENNIFER [email or web address]) Nutritional Asmnt/Malnutrition Patient General Information Nutritional Screening Moderate Risk Screening Diagnosis Pelvic pain secondary to worsening inguinal hernia Pertinent Medical Hx/Surgical Hx HTN, schizoaffective disorder, chronic lower extremity edema , hx CHF Subjective Information 55 year old male from SNF. 11/30 operative repair of umbilical and inguinal hernia. Pt was pleasant, confused, poor historian. Pt was sitting at edge of bed with 75% lunch finished, stated "that's all I can do." Other resposnes were questionable, limited interview. Pt appears nourisehd and approrpiate for age. Avg Po intake 75-100%, meeting nutritional needs. Current Diet Order/ Nutrition Support Low sodium, low cholesterol Pertinent Medications Maalox, Colace, MOM, Zofran Pertinent Labs Reviewed. Nutritional Hx/Data Height 1.8 m Height (Calculated Centimeters) 180.3 Current Weight (lbs) 102.965 kg Weight (Calculated Kilograms) 103.0 Weight (Calculated Grams) 228550.5 [place] Body Weight 172lb Weight Status Obese GI Symptoms Food Allergies No Skin Integrity/Comment: Nic 16. Skin intact. Current %PO Good (75-100%) Estimated Nutritional Goals BEE in Kcals: Adj wt of IBW Calories/Kcals/Kg AdjBW 185.8lb/84.4kg Kcals Calculated 2110-2532kcal (25-30kcal/kg) Protein: Adj wt of IBW Protein Calculated 84g (1g/kg) Fluid: ml 2110-2532ml (1ml/kcal) Nutritional Problem 1. Problem Problem No nutritional problem at this time. Intervention/Recommendation Comments 1. Continue with low sodium, low cholesterol diet. Expected Outcomes/Goals Expected Outcomes/Goals 1. PO intake continue to meet at least 75% of estimated nutritional needs.
[2016-12-04] MEDS: Sodium Chloride 0.45% 1,000 ML IV SCH (21:15)
[2016-12-05] MEDS: Hydrocodone/APAP 10 mg/325 mg Tab PO PRN ×4 (03:31→21:22)
[2016-12-05 05:36] LABS: ANION GAP 9.5 (7.0-16.0); BUN - UREA NITROGEN 10 mg/dL (7-25); BUN/CREATININE RATIO 11.1; CALCIUM SERUM 8.5 mg/dL (8.6-10.3); CARBON DIOXIDE 26.7 mEq/L (21.0-31.0); CHLORIDE 106 mEq/L (98-107); CREATININE - SERUM 0.9 mg/dL (0.7-1.3); GLUCOSE 90 mg/dL (70-105); MAGNESIUM 1.6 mg/dL (1.9-2.7); POTASSIUM SERUM 3.2 mEq/L (3.5-5.1); SODIUM SERUM 139 mEq/L (136-145)
[2016-12-05 09:09] LABS: HEMATOCRIT 37.7 % (39.0-49.0); HEMOGLOBIN 12.6 gm/dL (13.2-17.3); MEAN CELL VOLUME 90.8 fl (80-99); MEAN CORPUSCULAR HEMOGLOBIN 30.3 pg (26.0-30.0); MEAN CORPUSCULAR HGB CONC 33.4 pg (28.0-36.0); MEAN PLATELET VOLUME 10.6 fl; RED BLOOD COUNT 4.16 Mil/cmm (4.30-5.70); RED CELL DISTRIBUTION WIDTH 13.4 % (11.5-20.0)
[2016-12-05 09:16] LABS: PLATELET COUNT 109 Th/cmm (150-400); WHITE BLOOD COUNT 44.1 Th/cmm (4.8-10.8)
[2016-12-05 09:34] LABS: BAND NEUTROPHILE 0 % (0-10); NEUTROPHILS 10 % (40-80); TOTAL CELLS COUNTED 100
[2016-12-05 09:35] LABS: PLATELET ESTIMATE SLIGHT DECREASED (NORMAL)
[2016-12-05] MEDS: Benztropine 1 MG TAB PO SCH ×2 (09:50→16:16)
[2016-12-05] MEDS: Polyvinyl Alcohol Ophth Soln 15 mL Bottle EACH EYE SCH ×7 (10:22→21:30)
[2016-12-05] MEDS ORDERED: Potassium Chloride 20 mEq ER Tab PO ONE (13:12)
[2016-12-05] MEDS ORDERED: Mag Sulfate 2gm/50mL Premix 2 GM/50 ML BAG IV ONE (13:30)
[2016-12-06] MEDS: Benztropine 1 MG TAB PO SCH ×2 (08:35→18:10)
--- NOTE | 2016-12-06 08:40 | General Progress Note ---
Subjective - Review of Systems Service Date: 12/06/16 Events since last encounter: sero-sanguinous drainage persists on all incisions will add Clindamycin Objective - Results Result Diagrams: 12/05/16 09:05 12/05/16 04:36 Recent Labs: Laboratory Last Values WBC 44.1 Th/cmm (4.8-10.8) H* 12/05/16 09:05 RBC 4.16 Mil/cmm (4.30-5.70) L 12/05/16 09:05 Hgb 12.6 gm/dL (13.2-17.3) L 12/05/16 09:05 Hct 37.7 % (39.0-49.0) L D 12/05/16 09:05 MCV 90.8 fl (80-99) 12/05/16 09:05 MCH 30.3 pg (26.0-30.0) H 12/05/16 09:05 MCHC Differential 33.4 pg (28.0-36.0) 12/05/16 09:05 RDW 13.4 % (11.5-20.0) 12/05/16 09:05 Plt Count 109 Th/cmm (150-400) L D 12/05/16 09:05 MPV 10.6 fl 12/05/16 09:05 Band Neutrophils % 0 % (0-10) 12/05/16 09:05 Neutrophils (Manual) 10 % (40-80) L 12/05/16 09:05 Lymphocytes 72 % (20-50) H 12/05/16 09:05 Monocytes 8 % (2-10) 12/05/16 09:05 Eosinophils 0 % (0-5) 11/30/16 21:10 Basophils 0 % (0-3) 11/30/16 21:10 Atypical Lymphocytes 10 % 12/05/16 09:05 Other Cell Type 2.0 12/04/16 06:30 Platelet Estimate SLIGHT DECREASED (NORMAL) 12/05/16 09:05 Platelet Morphology GIANT PLATELETS SEEN (NORMAL) 12/01/16 07:20 RBC Morph Micro Appear NORMAL (NORMAL) 12/01/16 07:20 Smear Path Review 12/01/16 07:20 PT 11.4 SECONDS (9.5-11.5) 12/01/16 07:15 INR 1.09 (0.5-1.4) 12/01/16 07:15 PTT (Actin FS) 25.9 SECONDS (26.0-38.0) L 12/01/16 07:15 Sodium 139 mEq/L (136-145) 12/05/16 04:36 Potassium 3.2 mEq/L (3.5-5.1) L 12/05/16 04:36 Chloride 106 mEq/L (98-107) 12/05/16 04:36 Carbon Dioxide 26.7 mEq/L (21.0-31.0) 12/05/16 04:36 Anion Gap 9.5 (7.0-16.0) 12/05/16 04:36 BUN 10 mg/dL (7-25) 12/05/16 04:36 Creatinine 0.9 mg/dL (0.7-1.3) 12/05/16 04:36 Est GFR ( Amer) > 60.0 ml/min (>90) 12/05/16 04:36 Est GFR (Non-Af Amer) > 60.0 ml/min 12/05/16 04:36 BUN/Creatinine Ratio 11.1 12/05/16 04:36 Glucose 90 mg/dL (70-105) 12/05/16 04:36 Whole Bld Lactic Acid 1.83 mmol/L (0.60-1.99) 11/30/16 21:10 Calcium 8.5 mg/dL (8.6-10.3) L 12/05/16 04:36 Magnesium 1.6 mg/dL (1.9-2.7) L 12/05/16 04:36 Total Bilirubin 0.7 mg/dL (0.3-1.0) 12/04/16 06:30 AST 14 U/L (13-39) 12/04/16 06:30 ALT 5 U/L (7-52) L 12/04/16 06:30 Alkaline Phosphatase 33 U/L (34-104) L 12/04/16 06:30 B-Natriuretic Peptide 138.0 pg/mL (5.0-100.0) H 12/03/16 06:15 Total Protein 6.3 gm/dL (6.0-8.3) 12/04/16 06:30 Albumin 3.0 gm/dL (4.2-5.5) L 12/04/16 06:30 Globulin 3.3 gm/dL 12/04/16 06:30 Albumin/Globulin Ratio 0.9 (1.0-1.8) L 12/04/16 06:30 Amylase 33 U/L (29-103) 11/29/16 20:50 Lipase 27 U/L (11-82) 11/29/16 20:50 Urine Source CLEAN C 11/29/16 16:05 Urine Color YELLOW 11/29/16 16:05 Urine Clarity CLEAR (CLEAR) 11/29/16 16:05 Urine pH 6.0 11/29/16 16:05 Ur Specific [place] 1.005 (1.005-1.030) 11/29/16 16:05 Urine Protein NEGATIVE mg/dL (NEGATIVE) 11/29/16 16:05 Urine Glucose (UA) NEGATIVE mg/dL (NEGATIVE) 11/29/16 16:05 Urine Ketones NEGATIVE mg/dL (NEGATIVE) 11/29/16 16:05 Urine Blood NEGATIVE (NEGATIVE) 11/29/16 16:05 Urine Nitrate NEGATIVE (NEGATIVE) 11/29/16 16:05 Urine Bilirubin NEGATIVE (NEGATIVE) 11/29/16 16:05 Urine Urobilinogen 0.2 E.U./dL (0.2 - 1.0) 11/29/16 16:05 Ur Leukocyte Esterase NEGATIVE (NEGATIVE) 11/29/16 16:05 Urine RBC NONE SEEN /hpf (0-5) 11/29/16 16:05 Urine WBC NONE SEEN /hpf (0-5) 11/29/16 16:05 Ur Epithelial Cells NONE SEEN /lpf (FEW) 11/29/16 16:05 Urine Bacteria NONE SEEN /hpf (NONE SEEN) 11/29/16 16:05 - Physical Exam Vitals and I&O: Vital Signs Temp 99.7 F 12/06/16 04:00 Pulse 80 12/06/16 07:55 Resp 18 12/06/16 07:56 BP 118/68 12/06/16 04:00 Pulse Ox 97 12/06/16 07:55 Intake & Output 12/05/16 12/06/16 12/06/16 18:59 06:59 18:59 Intake Total 850 250 Balance 850 250 Intake: Intake, IV Amount 100 100 Piperacillin Sodium/ 100 100 Tazobact 4.5 gm In Sodium Chloride 0.9% 100 ml @ 100 mls/hr IV Q8HR [facility] Rx #:[id number] Oral 750 150 Other: # Voids 3 3 # Bowel Movements 0 1 Active Medications: Current Medications Acetaminophen (Tylenol) 650 mg PO Q4HR PRN PRN Reason: Pain or Fever >101 Stop: 01/28/17 21:20 Last Admin: 12/06/16 01:13 Dose: 650 mg Acetaminophen/Hydrocodone Bitart ([place] 5mg/325mg) 1 tab PO Q4H PRN PRN Reason: Pain (Severe) Stop: 01/28/17 21:20 Acetaminophen/Hydrocodone Bitart ([place] 10 Mg/325 Mg) 1 tab PO Q4H PRN PRN Reason: Abdominal Pain Stop: 01/29/17 14:18 Last Admin: 12/05/16 21:22 Dose: 1 tab Al Hydrox/Mg Hydrox/Simethicone (Maalox) 30 ml PO Q4H PRN PRN Reason: GI DISTRESS Stop: 01/28/17 21:18 Albuterol Sulfate (Albuterol 2.5mg/3ml Neb Ud) 2.5 mg IH Q2HR PRN PRN Reason: Shortness of Breath or Wheeze Stop: 01/28/17 21:20 Artificial Tears (Artificial Tears Ophth Soln) 1 drop EACH EYE QID [facility] Stop: 01/29/17 08:59 Last Admin: 12/05/16 21:30 Dose: Not Given Benztropine Mesylate (Cogentin) 1 mg PO BID [facility] Stop: 01/29/17 08:59 Last Admin: 12/05/16 16:16 Dose: 1 mg Bisacodyl (Dulcolax 10 Mg Supp) 10 mg RC DAILY PRN PRN Reason: Constipation Stop: 02/01/17 15:04 Carvedilol (Coreg) 3.125 mg PO BID [facility] Stop: 01/29/17 08:59 Last Admin: 12/05/16 16:16 Dose: 3.125 mg Clonidine HCl (Catapres) 0.1 mg PO Q8H PRN PRN Reason: SBP GREATER THAN 160 Stop: 01/28/17 21:18 Divalproex Sodium (Depakote Dr) 500 mg PO DAILY [facility] PRN Reason: Protocol Stop: 01/29/17 08:59 Last Admin: 12/05/16 09:51 Dose: 500 mg Docusate Sodium (Colace) 250 mg PO BID [facility] Stop: 02/01/17 16:59 Last Admin: 12/05/16 16:16 Dose: 250 mg Heparin Sodium (Porcine) (Heparin) 5,000 units SUBQ Q12HR [facility] Stop: 01/29/17 08:59 Last Admin: 12/05/16 21:22 Dose: 5,000 units Hydromorphone HCl (Dilaudid) 2 mg IVP Q4HR PRN PRN Reason: Abdominal Pain Stop: 01/29/17 14:18 Last Admin: 12/01/16 12:53 Dose: 2 mg Piperacillin Sod/Tazobactam (Sod 4.5 gm/ Sodium Chloride) 100 mls @ 100 mls/hr IV Q8HR [facility] Stop: 01/31/17 20:59 Last Admin: 12/06/16 05:44 Dose: 100 mls/hr Ipratropium [place] (Atrovent Neb 0.5mg/2.5ml) 0.5 mg IH Q2HR PRN PRN Reason: Shortness of Breath or Wheeze Stop: 01/28/17 21:20 Magnesium Hydroxide (Milk Of Magnesia) 30 ml PO HS PRN PRN Reason: Constipation Stop: 01/28/17 21:18 Last Admin: 12/05/16 09:52 Dose: 30 ml Nitroglycerin (Nitrostat) 0.4 mg SL Q5MIN PRN PRN Reason: Chest Pain Stop: 01/28/17 21:18 Ondansetron HCl (Zofran) 4 mg IV Q8H PRN PRN Reason: Nausea / Vomiting Stop: 01/28/17 21:20 Risperidone (Risperdal) 2 mg PO Q12H [facility] PRN Reason: Protocol Stop: 01/28/17 21:29 Last Admin: 12/05/16 21:22 Dose: 2 mg Zolpidem Tartrate (Ambien) 10 mg PO HS PRN PRN Reason: Insomnia Stop: 01/28/17 21:20 - Procedures Procedures: Procedures Procedure Code Date OTHER GROUP THERAPY 94.44 12/22/14 PRP I/FLOR INIT BLOCK >5 YR 84981 11/29/16 REPAIR ABDOMINAL WALL, PERCUTANEOUS ENDOSCOPIC APPROACH [id number] 11/29/16 RPR UMBIL FLOR BLOCK > 5 YR 50809 11/29/16 SUPPLEMENT R INGUINAL REGION WITH SYNTH SUB, OPEN APPROACH [id number] 11/29/16 Assessment/Plan - Problem List Patient Problems: All Active Problems Dyspnea (Active) R06.00 Acute on chronic systolic congestive heart failure (Acute) I50.23 Anemia (Acute) D64.9 CHF (congestive heart failure) (Acute) I50.9 Cardiomegaly (Acute) I51.7 Cardiomyopathy (Acute) 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 Nutritional Asmnt/Malnutr-PDOC - Dietary Evaluation Malnutrition Findings (Please click <Entered> for more info): Nutritional Asmnt/Malnutrition Start: 12/04/16 14: 05 Text: Status: Complete Freq: Document 12/04/16 14:05 [facility] (Rec: 12/04/16 14:17 JENNIFER [email or web address]) Nutritional Asmnt/Malnutrition Patient General Information Nutritional Screening Moderate Risk Screening Diagnosis Pelvic pain secondary to worsening inguinal hernia Pertinent Medical Hx/Surgical Hx HTN, schizoaffective disorder, chronic lower extremity edema , hx CHF Subjective Information 55 year old male from SNF. / operative repair of umbilical and inguinal hernia. Pt was pleasant, confused, poor historian. Pt was sitting at edge of bed with 75% lunch finished, stated "that's all I can do." Other resposnes were questionable, limited interview. Pt appears nourisehd and approrpiate for age. Avg Po intake 75-100%, meeting nutritional needs. Current Diet Order/ Nutrition Support Low sodium, low cholesterol Pertinent Medications Maalox, Colace, MOM, Zofran Pertinent Labs Reviewed. Nutritional Hx/Data Height 1.8 m Height (Calculated Centimeters) 180.3 Current Weight (lbs) 102.965 kg Weight (Calculated Kilograms) 103.0 Weight (Calculated Grams) 987861.5 [place] Body Weight 172lb Weight Status Obese GI Symptoms Food Allergies No Skin Integrity/Comment: Nic 16. Skin intact. Current %PO Good (75-100%) Estimated Nutritional Goals BEE in Kcals: Adj wt of IBW Calories/Kcals/Kg AdjBW 185.8lb/84.4kg Kcals Calculated 2110-2532kcal (25-30kcal/kg) Protein: Adj wt of IBW Protein Calculated 84g (1g/kg) Fluid: ml 2110-2532ml (1ml/kcal) Nutritional Problem 1. Problem Problem No nutritional problem at this time. Intervention/Recommendation Comments 1. Continue with low sodium, low cholesterol diet. Expected Outcomes/Goals Expected Outcomes/Goals 1. PO intake continue to meet at least 75% of estimated nutritional needs.
[2016-12-06] MEDS: Polyvinyl Alcohol Ophth Soln 15 mL Bottle EACH EYE SCH ×4 (08:55→18:10)
[2016-12-06] MEDS: Hydrocodone/APAP 10 mg/325 mg Tab PO PRN (09:15)
[2016-12-06 14:27] LABS: HEMATOCRIT 34.2 % (39.0-49.0); HEMOGLOBIN 11.6 gm/dL (13.2-17.3); MEAN CELL VOLUME 89.6 fl (80-99); MEAN CORPUSCULAR HEMOGLOBIN 30.4 pg (26.0-30.0); MEAN CORPUSCULAR HGB CONC 33.9 pg (28.0-36.0); MEAN PLATELET VOLUME 10.3 fl; PLATELET COUNT 114 Th/cmm (150-400); RED BLOOD COUNT 3.81 Mil/cmm (4.30-5.70); RED CELL DISTRIBUTION WIDTH 13.2 % (11.5-20.0)
[2016-12-06 14:48] LABS: WHITE BLOOD COUNT 43.2 Th/cmm (4.8-10.8)
[2016-12-06 14:50] LABS: ANION GAP 3.8 (7.0-16.0); BUN - UREA NITROGEN 7 mg/dL (7-25); CALCIUM SERUM 8.3 mg/dL (8.6-10.3); CARBON DIOXIDE 28.2 mEq/L (21.0-31.0); CHLORIDE 110 mEq/L (98-107); GLUCOSE 89 mg/dL (70-105); MAGNESIUM 1.8 mg/dL (1.9-2.7); SODIUM SERUM 138 mEq/L (136-145)
[2016-12-06 14:54] LABS: BAND NEUTROPHILE 0 % (0-10); NEUTROPHILS 12 % (40-80); TOTAL CELLS COUNTED 100
--- NOTE | 2016-12-07 02:00 | Discharge Summary ---
DATE OF DISCHARGE: 12/06/2016 CHIEF COMPLAINT: Pelvic pain. DIAGNOSES: 1. Pelvic pain secondary to worsening inguinal left hernia status post repair. 2. Hydrocele. 3. Hypertension. 4. Schizoaffective disorder. 5. Electrolyte abnormalities. 6. Serosanguineous drainage. 7. ____. 8. Possible infection. HISTORY: This is a 55 years old -[place] male with history of hypertension, schizoaffective disorder, chronic lower extremity edema, CHF, admitted from nursing facility secondary to worsening pelvic pain. The patient noted to have increasing hernia with some loops of bowels. The patient was admitted for further management. PHYSICAL EXAMINATION: VITAL SIGNS: Blood pressure 125/79, respirations 18, pulse 80, and temperature 99.7. GENERAL: Middle-aged male, appears chronically ill. NECK: Supple. No mass. LUNGS: Equal breath sounds, a few rhonchi. HEART: Regular rate and rhythm without systolic ejection murmur. ABDOMEN: Soft and nontender. EXTREMITIES: No clubbing, cyanosis, or edema. Positive surgical incision in the inguinal area and midline. ADDENDUM ON THE DIAGNOSES: The patient also has chronic lymphocytic leukemia and anemia. HOSPITAL COURSE: The patient was admitted to medical floor. The patient was referred to Dr. Hoang for surgery and underwent right and left inguinal hernia repair with incarceration with placement of plug and ____ incarcerated area. The patient was also seen by Dr. Black for hematology and Dr. Levine. The patient is with low-grade fever. He is to continue IV antibiotic. The patient is to be discharged to ____. DISCHARGE INSTRUCTIONS: The patient to continue with IV antibiotic and wound care and surgical followup. JOB# [id number]
== END 2016-12-06 19:29 | DRG 351 ==
LOC: ER 15:52 → MSI 20:50
PROVIDERS: ADMIT Internal Medicine; ATTEND Internal Medicine
PROC: 0YU50JZ Supplement Right Inguinal Region with Synthetic Substitute, Open Approach (ICD-10-PCS; principal; 2016-11-30)
PROC: 0WQF0ZZ Repair Abdominal Wall, Open Approach (ICD-10-PCS; 2016-11-30)
PROC: 0YQ60ZZ Repair Left Inguinal Region, Open Approach (ICD-10-PCS; 2016-11-30)
DX: K40.30 Unilateral inguinal hernia, with obstruction, without gangrene, not specified as recurrent (principal); I42.9 Cardiomyopathy, unspecified; C91.10 Chronic lymphocytic leukemia of B-cell type not having achieved remission; I50.9 Heart failure, unspecified; I11.0 Hypertensive heart disease with heart failure; D69.6 Thrombocytopenia, unspecified; K42.9 Umbilical hernia without obstruction or gangrene; F25.9 Schizoaffective disorder, unspecified; N43.3 Hydrocele, unspecified; K43.9 Ventral hernia without obstruction or gangrene; E66.9 Obesity, unspecified; Z87.891 Personal history of nicotine dependence; Z82.3 Family history of stroke; Z91.14 Patient's other noncompliance with medication regimen; Z68.31 Body mass index [BMI] 31.0-31.9, adult
CPT/HCPCS: 36415-UA; 71010-TC; 76870-TC; 80048-TC; 80053-TC; 81001-TC; 82150-TC; 83605; 83690-TC; 83735-TC; 83880-TC; 85007-TC; 85027-TC; 85610-TC; 87070-90; 87075-90; 87205-90; 90799; 93005; 94760; 96372; J0690; J1170; J1644; J1956; J2001; J2250; J2543; J2704; J2710; J3475; J7030; X6024; X6258; Z7610